=== PATIENT | male | born 1980 | race African-American/Black ===

== ENCOUNTER 2017-05-08 17:01 | Inpatient (IN) ==
[2017-05-08] MEDS ORDERED: FUROSEMIDE 100 MG/10 ML VIAL IV STA (17:53)
[2017-05-08] MEDS ORDERED: ONDANSETRON 4 MG/2 ML VIAL IV STA (17:53)
[2017-05-08] MEDS ORDERED: MORPHINE 2 MG/1 ML SYRINGE IV STA (17:53)
[2017-05-08] MEDS ORDERED: NITROGLYCERIN 2% OINT 1 INCH/GM PACK TOP STA (17:53)
[2017-05-08] MEDS ORDERED: ASPIRIN 325 MG TABLET PO STA (17:53)
[2017-05-08] MEDS ORDERED: methylPREDNISolone SOD SUC 125 MG/2 ML VIAL IV STA (17:53)
[2017-05-08] MEDS ORDERED: ALBUTEROL 2.5 MG/3 ML NEB RESP TX SCH (18:00)
[2017-05-08] MEDS ORDERED: DEXTROSE 50% 25 GM/50 ML VIAL IV PRN (18:30)
[2017-05-08] MEDS ORDERED: ACETAMINOPHEN 325 MG TABLET PO PRN (18:30)
[2017-05-08] MEDS ORDERED: GLUCAGON 1 MG VIAL IM PRN (18:30)
[2017-05-08] MEDS ORDERED: LACTULOSE 20 GM/30 ML UDCUP PO PRN (18:30)
[2017-05-08] MEDS ORDERED: ONDANSETRON 4 MG/2 ML VIAL IV PRN (18:30)
[2017-05-08] MEDS ORDERED: POTASSIUM CHLORIDE 20 MEQ TABLET PO STA (18:52)
[2017-05-08 18:53] LABS: Basophils % 0.3 % (0.0-0.8); Hematocrit 38.5 VOL% (42.0-52.0); Hemoglobin 13.5 GM/DL (14.0-18.0); Immature Granulocytes % 0.6 %; Immature Granulocytes Absolute 0.04 #; Lymphocytes # 0.3 10*3/uL (1.4-4.0); Lymphocytes % 5.3 % (21.2-54.2); Mean Corpuscular HGB Conc 35.1 GM/DL (32-36); Mean Corpuscular Hemoglobin 32 PG (27-34); Mean Corpuscular Volume 91.4 FL (87-102); Mean Platelet Volume 10.1 FL (9.6-12.0); Monocytes # 0.2 10*3/uL (0.11-0.8); Monocytes % 2.3 % (1.7-12.7); NRBC # 0.02 10*3/uL; Neutrophils # 5.9 10*3/uL (1.4-7.4); Neutrophils % 91.5 % (38.7-73.9); Platelet Count 307 T/CUMM (130-400); Red Blood Count 4.21 MC/CUMM (3.8-5.5); Red Cell Distribution Width 14.7 % (9.3-17.3); White Blood Count 6.4 T/CUMM (4-12)
[2017-05-08] MEDS ORDERED: LORazepam 1 MG TABLET PO PRN (18:56)
[2017-05-08 19:03] LABS: ABG Base Excess 2.6 MMOL/L (-2.5-2.5); ABG HCO3 26.7 MMOL/L (20-26); ABG Oxygen Saturation 96.6 % (95-100); ABG PCO2 29.9 MM HG (35-48); ABG PH 7.522 (7.35-7.45); ABG PO2 79.7 MM HG (80-95); ABG TCO2 21.1 MMOL/L (23-27)
[2017-05-08 19:05] LABS: INR 1.1; PT Patient Result 11.2 SECS
[2017-05-08 19:23] LABS: Albumin 3.5 G/DL (3.4-5.0); Calcium 8.2 MG/DL (8.5-10.1); Magnesium 1.1 MG/DL (1.8-2.4); Osmolality,Calculated 289.1 MOS/KG (273-304); Potassium 3.3 MMOL/L (3.5-5.1); Total Protein 7.7 G/DL (6.4-8.3)
[2017-05-08 19:25] LABS: Apearance,Urine CLEAR (Clear); Bilirubin,Urine Negative (Negative); Blood, Urine Negative (Negative); Glucose,Urine (UA) 50 mg/dL (Negative); Hyaline Casts,Urine 7 /LPF (0-3); Ketones,Urine 5 mg/dL (Negative); Mucus,Urine Few /LPF (Occasional); Nitrite,Urine Negative (Negative); Protein,Urine 100 MG/DL; Troponin I Only 0.059 NG/ML (0.00-0.045); Urine Color Yellow (Yellow); Urine Specific Gravity 1.013 (1.001-1.035); Urine Urobilinogen < 2.0 EU/DL (0.2-1.0); WBC,Urine 1 /HPF (0-6)
[2017-05-08] MEDS ORDERED: CARVEDILOL 3.125 MG TABLET ONE (19:27)
[2017-05-08] MEDS ORDERED: POTASSIUM CHLORIDE 20 MEQ TABLET PO ONE (19:27)
[2017-05-08] MEDS ORDERED: ONDANSETRON 4 MG/2 ML VIAL ONE (19:27)
[2017-05-08] MEDS ORDERED: MORPHINE 2 MG/1 ML SYRINGE ONE (19:27)
[2017-05-08] MEDS ORDERED: FUROSEMIDE 100 MG/10 ML VIAL ONE (19:28)
[2017-05-08] MEDS ORDERED: ASPIRIN 325 MG TABLET ONE (19:28)
[2017-05-08] MEDS ORDERED: MAGNESIUM SULF RIDER 4 GM in PREMIX 1 EACH IV ONE (19:29)
[2017-05-08 19:30] LABS: Barbiturates Screen,Urine Negative (Negative); Benzodiazepines Screen,Urine Negative (Negative); Cannabinoid Screen,Urine Negative (Negative); Opiate Screen,Urine Negative (Negative); Phencyclidine Screen,Urine Negative (Negative)
[2017-05-08] MEDS: CARVEDILOL 12.5 MG TABLET PO SCH (19:50)
[2017-05-08 20:07] LABS: Lymphocytes 4 % (20-55); Polychromasia Few; Segmented Neutrophils 94 % (50-85); Total Cells Counted 100
[2017-05-08 20:08] LABS: Hypochromasia Slight; Platelet Estimate Normal
[2017-05-08] MEDS ORDERED: LOSARTAN 50 MG TABLET PO SCH (21:00)
[2017-05-08] MEDS ORDERED: AMOXICILLIN 875 MG TABLET PO SCH (21:00)
[2017-05-08] MEDS ORDERED: MAGNESIUM SULF RIDER 50 ML IV ONE ×2 (21:22→22:18)
[2017-05-08] MEDS: methylPREDNISolone SOD SUC 40 MG/1 ML VIAL IV SCH (21:29)
[2017-05-08] MEDS: DILTIAZEM 50 MG/10 ML VIAL IV PRN (21:30)
[2017-05-08] MEDS: PIPERACILLIN/TAZOBACTAM 3,375 MG in SODIUM CHLORIDE 0.9% 100 ML IV SCH (21:31)
[2017-05-08] MEDS: INSULIN LISPRO 100 UNIT/ML SUBCUT SCH (21:31)
[2017-05-08] MEDS: SODIUM CHLORIDE 0.45% 1,000 ML IV SCH (21:32)
[2017-05-08] MEDS: ZALEPLON 5 MG CAPSULE PO PRN (22:38)
[2017-05-08 22:39] LABS: Hepatitis A Ab IgM Quant 0.08 Index; Hepatitis A Ab IgM Result Negative (Negative); Hepatitis B Core IgM Quant 0.07 Index; Hepatitis B Core IgM Result Negative (Negative); Hepatitis B Surface Ag Result Negative (Negative); Hepatitis C Virus Ab Quant 0.17 Index; Hepatitis C Virus Ab Result Negative (Negative)
[2017-05-09] MEDS: LABETALOL 20 MG/4 ML SYRINGE IV PRN ×5 (00:54→07:22)
[2017-05-09] MEDS: methylPREDNISolone SOD SUC 40 MG/1 ML VIAL IV SCH ×3 (03:44→20:57)
[2017-05-09 04:57] LABS: Hematocrit 34.6 VOL% (42.0-52.0); Hemoglobin 12.7 GM/DL (14.0-18.0); Immature Granulocytes % 1.2 %; Immature Granulocytes Absolute 0.06 #; Lymphocytes # 0.4 10*3/uL (1.4-4.0); Lymphocytes % 8.4 % (21.2-54.2); Mean Corpuscular HGB Conc 36.7 GM/DL (32-36); Mean Corpuscular Hemoglobin 33 PG (27-34); Mean Corpuscular Volume 90.6 FL (87-102); Mean Platelet Volume 10.4 FL (9.6-12.0); Monocytes # 0.3 10*3/uL (0.11-0.8); Monocytes % 5.6 % (1.7-12.7); NRBC # 0.02 10*3/uL; Neutrophils # 4.2 10*3/uL (1.4-7.4); Neutrophils % 84.8 % (38.7-73.9); Platelet Count 297 T/CUMM (130-400); Red Blood Count 3.82 MC/CUMM (3.8-5.5); Red Cell Distribution Width 14.6 % (9.3-17.3)
[2017-05-09] MEDS: PIPERACILLIN/TAZOBACTAM 3,375 MG in SODIUM CHLORIDE 0.9% 100 ML IV SCH (05:15)
[2017-05-09] MEDS: DILTIAZEM 50 MG/10 ML VIAL IV PRN (05:16)
[2017-05-09 05:31] LABS: Calcium 7.7 MG/DL (8.5-10.1); Osmolality,Calculated 285.4 MOS/KG (273-304); Potassium 3.5 MMOL/L (3.5-5.1); Risk Ratio 2.11; VLDL CHOLESTEROL 24.8 MG/DL
[2017-05-09] MEDS: SODIUM CHLORIDE 0.45% 1,000 ML IV SCH (06:33)
[2017-05-09] MEDS: ASPIRIN EC 325 MG TABLET PO SCH (08:05)
[2017-05-09] MEDS: PANTOPRAZOLE 40 MG TABLET PO SCH (08:06)
[2017-05-09] MEDS: THIAMINE 100 MG TABLET PO SCH (08:06)
[2017-05-09] MEDS: CARVEDILOL 12.5 MG TABLET PO SCH (08:06)
[2017-05-09] MEDS: INSULIN LISPRO 100 UNIT/ML SUBCUT SCH ×4 (08:06→21:06)
[2017-05-09] MEDS: FOLIC ACID 1 MG TABLET PO SCH (08:06)
[2017-05-09] MEDS: LEVALBUTEROL 1.25 MG/3 ML NEB RESP TX SCH ×5 (08:36→23:35)
[2017-05-09] MEDS: CARVEDILOL 25 MG TABLET PO SCH ×2 (10:14→21:00)
[2017-05-09] MEDS: cloNIDine 0.1 MG TABLET PO SCH ×2 (10:14→21:00)
[2017-05-09] MEDS ORDERED: POTASSIUM CHLORIDE 20 MEQ TABLET PO ONE (11:57)
[2017-05-09] MEDS: FUROSEMIDE 20 MG/2 ML VIAL IV SCH (12:34)
[2017-05-09] MEDS: hydroCHLOROthiazide 25 MG TABLET PO SCH (12:35)
[2017-05-09] MEDS: VALSARTAN 160 MG TABLET PO SCH (12:35)
[2017-05-09] MEDS: SPIRONOLACTONE 25 MG TABLET PO SCH (12:35)
[2017-05-09] MEDS: LEVOFLOXACIN 750 MG TABLET PO SCH (12:35)
[2017-05-09] MEDS: ENOXAPARIN 40 MG/0.4 ML SYRINGE SUBCUT SCH (18:20)
[2017-05-09] MEDS: ZALEPLON 5 MG CAPSULE PO PRN (21:06)
[2017-05-10] MEDS: LEVALBUTEROL 1.25 MG/3 ML NEB RESP TX SCH (03:10)
[2017-05-10] MEDS: LABETALOL 20 MG/4 ML SYRINGE IV PRN (05:24)
[2017-05-10] MEDS: methylPREDNISolone SOD SUC 40 MG/1 ML VIAL IV SCH ×3 (05:27→23:19)
[2017-05-10 06:42] LABS: Basophils % 0.1 % (0.0-0.8); Hematocrit 37.2 VOL% (42.0-52.0); Hemoglobin 12.8 GM/DL (14.0-18.0); Immature Granulocytes % 0.9 %; Immature Granulocytes Absolute 0.09 #; Lymphocytes # 0.7 10*3/uL (1.4-4.0); Lymphocytes % 6.7 % (21.2-54.2); Mean Corpuscular HGB Conc 34.4 GM/DL (32-36); Mean Corpuscular Hemoglobin 32 PG (27-34); Mean Corpuscular Volume 93.9 FL (87-102); Mean Platelet Volume 10.8 FL (9.6-12.0); Monocytes # 0.7 10*3/uL (0.11-0.8); Neutrophils # 8.5 10*3/uL (1.4-7.4); Neutrophils % 85.3 % (38.7-73.9); Platelet Count 306 T/CUMM (130-400); Red Blood Count 3.96 MC/CUMM (3.8-5.5); Red Cell Distribution Width 14.3 % (9.3-17.3)
[2017-05-10 07:04] LABS: Calcium 8.2 MG/DL (8.5-10.1); Osmolality,Calculated 275.4 MOS/KG (273-304); Potassium 3.9 MMOL/L (3.5-5.1)
[2017-05-10] MEDS: ALBUTEROL 2.5 MG/3 ML NEB RESP TX SCH ×5 (08:31→23:23)
[2017-05-10] MEDS: INSULIN LISPRO 100 UNIT/ML SUBCUT SCH ×4 (08:49→23:44)
[2017-05-10] MEDS: FUROSEMIDE 20 MG/2 ML VIAL IV SCH (09:30)
[2017-05-10] MEDS: hydroCHLOROthiazide 25 MG TABLET PO SCH (09:32)
[2017-05-10] MEDS: cloNIDine 0.1 MG TABLET PO SCH ×2 (09:32→23:22)
[2017-05-10] MEDS: SPIRONOLACTONE 25 MG TABLET PO SCH (09:33)
[2017-05-10] MEDS: LEVOFLOXACIN 750 MG TABLET PO SCH (09:33)
[2017-05-10] MEDS: THIAMINE 100 MG TABLET PO SCH (09:33)
[2017-05-10] MEDS: VALSARTAN 160 MG TABLET PO SCH (09:34)
[2017-05-10] MEDS: FOLIC ACID 1 MG TABLET PO SCH (09:34)
[2017-05-10] MEDS: PANTOPRAZOLE 40 MG TABLET PO SCH (09:34)
[2017-05-10] MEDS: CARVEDILOL 25 MG TABLET PO SCH ×2 (09:34→23:22)
[2017-05-10] MEDS: ASPIRIN EC 325 MG TABLET PO SCH (09:34)
[2017-05-10] MEDS ORDERED: hydrALAZINE 20 MG/1 ML VIAL IV PRN (16:39)
[2017-05-10] MEDS ORDERED: MAGNESIUM SULF RIDER 2 GM in PREMIX 1 EACH IV PRN (16:51)
[2017-05-10] MEDS ORDERED: POTASSIUM CHLORIDE RIDER 10 MEQ in PREMIX 1 EACH IV PRN (16:54)
[2017-05-10] MEDS: SODIUM CHLORIDE 0.9% 1,000 ML IV SCH (17:55)
[2017-05-10] MEDS: amLODIPine 5 MG TABLET PO SCH (18:08)
[2017-05-10] MEDS: ENOXAPARIN 40 MG/0.4 ML SYRINGE SUBCUT SCH (23:19)
[2017-05-10] MEDS: ZALEPLON 5 MG CAPSULE PO PRN (23:22)
[2017-05-11] MEDS: ALBUTEROL 2.5 MG/3 ML NEB RESP TX SCH ×5 (02:23→19:14)
[2017-05-11] MEDS: SODIUM CHLORIDE 0.9% 1,000 ML IV SCH ×2 (03:28→11:32)
[2017-05-11] MEDS: methylPREDNISolone SOD SUC 40 MG/1 ML VIAL IV SCH (05:42)
[2017-05-11 06:08] LABS: Hematocrit 35.5 VOL% (42.0-52.0); Hemoglobin 12.3 GM/DL (14.0-18.0); Immature Granulocytes % 0.8 %; Immature Granulocytes Absolute 0.05 #; Lymphocytes # 0.4 10*3/uL (1.4-4.0); Lymphocytes % 6.6 % (21.2-54.2); Mean Corpuscular HGB Conc 34.6 GM/DL (32-36); Mean Corpuscular Hemoglobin 32 PG (27-34); Mean Corpuscular Volume 92.2 FL (87-102); Mean Platelet Volume 10.8 FL (9.6-12.0); Monocytes # 0.5 10*3/uL (0.11-0.8); Monocytes % 7.4 % (1.7-12.7); Neutrophils # 5.7 10*3/uL (1.4-7.4); Neutrophils % 85.2 % (38.7-73.9); Platelet Count 252 T/CUMM (130-400); Red Blood Count 3.85 MC/CUMM (3.8-5.5); Red Cell Distribution Width 14.5 % (9.3-17.3); White Blood Count 6.6 T/CUMM (4-12)
[2017-05-11] MEDS ORDERED: diphenhydrAMINE CAP 25 MG CAPSULE PO ONE (06:30)
[2017-05-11] MEDS ORDERED: DIAZEPAM 5 MG TABLET PO ONE (06:30)
[2017-05-11 06:45] LABS: Calcium 8.4 MG/DL (8.5-10.1); Osmolality,Calculated 284.5 MOS/KG (273-304)
[2017-05-11] MEDS: INSULIN LISPRO 100 UNIT/ML SUBCUT SCH ×3 (08:58→19:07)
[2017-05-11] MEDS: VALSARTAN 160 MG TABLET PO SCH (09:10)
[2017-05-11] MEDS: hydroCHLOROthiazide 25 MG TABLET PO SCH (09:10)
[2017-05-11] MEDS: ASPIRIN EC 325 MG TABLET PO SCH (09:10)
[2017-05-11] MEDS: LEVOFLOXACIN 750 MG TABLET PO SCH (09:10)
[2017-05-11] MEDS: cloNIDine 0.1 MG TABLET PO SCH (09:10)
[2017-05-11] MEDS: amLODIPine 5 MG TABLET PO SCH (09:10)
[2017-05-11] MEDS: CARVEDILOL 25 MG TABLET PO SCH (09:10)
[2017-05-11] MEDS: SPIRONOLACTONE 25 MG TABLET PO SCH (09:11)
[2017-05-11] MEDS: PANTOPRAZOLE 40 MG TABLET PO SCH (09:11)
[2017-05-11] MEDS: FOLIC ACID 1 MG TABLET PO SCH (09:12)
[2017-05-11] MEDS: THIAMINE 100 MG TABLET PO SCH (09:12)
[2017-05-11] MEDS: FUROSEMIDE 20 MG/2 ML VIAL IV SCH (09:13)
[2017-05-11] MEDS ORDERED: LIDOCAINE 1% 20 ML VIAL ONE (13:06)
[2017-05-11] MEDS ORDERED: HEPARIN/NACL 0.9% 2 UNITS/ML 2,000 ML IV ONE (13:06)
[2017-05-11] MEDS ORDERED: VERAPAMIL 5 MG/2 ML VIAL ONE (14:37)
[2017-05-11] MEDS ORDERED: fentaNYL 100 MCG/2 ML VIAL ONE (14:37)
[2017-05-11] MEDS ORDERED: NITROGLYCERIN DRIP 50 MG/250 ML BOTTLE IV ONE (14:37)
[2017-05-11] MEDS ORDERED: MIDAZOLAM 2 MG/2 ML VIAL ONE ×2 (14:37→14:52)
[2017-05-11] MEDS ORDERED: HEPARIN 5,000 UNIT/1 ML VIAL ONE (14:53)
[2017-05-11] MEDS ORDERED: MORPHINE 2 MG/1 ML SYRINGE IV PRN (15:39)
[2017-05-11] MEDS ORDERED: NITROGLYCERIN SL 0.4 MG TABLET SL PRN (15:39)
[2017-05-11 21:03] VITALS: BP 107/65
[2017-05-12] MEDS ORDERED: predniSONE 20 MG TABLET PO SCH (09:00)
== END 2017-05-11 20:05 | disposition home or self-care (01) | DRG 202 ==
LOC: EDUNIT# → EDBD → N.ED 17:01 → N.EDINP 18:27 → N.ICU 19:06 → N.2E 05-09 15:50
PROVIDERS: ADMIT Family Medicine; ATTEND Family Medicine
PROC: CLCCHCL (ICD-10-PCS; 2017-05-11 12:15)

== ENCOUNTER 2017-07-26 09:34 | Inpatient (IN) ==
[2017-07-26] MEDS ORDERED: ONDANSETRON 4 MG/2 ML VIAL IV STA (10:01)
[2017-07-26] MEDS ORDERED: SODIUM CHLORIDE 0.9% 1,000 ML IV STA ×2 (10:01→10:17)
[2017-07-26] MEDS ORDERED: fentaNYL 100 MCG/2 ML VIAL IV STA (10:01)
[2017-07-26] MEDS ORDERED: POTASSIUM CHLORIDE 20 MEQ TABLET PO STA (10:17)
[2017-07-26] MEDS ORDERED: ONDANSETRON 4 MG/2 ML VIAL ONE (10:28)
[2017-07-26] MEDS ORDERED: POTASSIUM CHLORIDE 20 MEQ TABLET PO ONE (10:28)
[2017-07-26] MEDS ORDERED: fentaNYL 100 MCG/2 ML VIAL ONE (10:29)
[2017-07-26] MEDS ORDERED: ONDANSETRON 4 MG/2 ML VIAL IV PRN (11:40)
[2017-07-26] MEDS ORDERED: HYDROmorphone 2 MG/1 ML VIAL IV PRN (11:40)
[2017-07-26] MEDS ORDERED: PROMETHAZINE 25 MG/1 ML VIAL IM PRN (11:40)
[2017-07-26] MEDS ORDERED: diphenhydrAMINE CAP 25 MG CAPSULE PO PRN (11:40)
[2017-07-26] MEDS ORDERED: guaiFENesin/DM ER 600-30 MG TABLET PO PRN (11:40)
[2017-07-26] MEDS ORDERED: DOCUSATE SODIUM 100 MG CAPSULE PO PRN (11:40)
[2017-07-26] MEDS ORDERED: ACETAMINOPHEN 325 MG TABLET PO PRN (11:40)
[2017-07-26] MEDS ORDERED: GLUCAGON 1 MG VIAL IM PRN (11:48)
[2017-07-26] MEDS ORDERED: DEXTROSE 50% 25 GM/50 ML VIAL IV PRN (11:48)
[2017-07-26] MEDS ORDERED: SODIUM CHLORIDE 0.9% 1,000 ML IV SCH (12:00)
[2017-07-26 12:38] LABS: Basophils % 0.2 % (0.0-0.8); Eosinophils % 0.1 % (0.00-10.9); Hematocrit 32.3 VOL% (42.0-52.0); Immature Granulocytes % 4.7 %; Immature Granulocytes Absolute 0.57 #; Lymphocytes # 0.7 10*3/uL (1.4-4.0); Lymphocytes % 5.3 % (21.2-54.2); Mean Corpuscular Hemoglobin 35 PG (27-34); Mean Corpuscular Volume 98.8 FL (87-102); Mean Platelet Volume 13.6 FL (9.6-12.0); Monocytes # 0.6 10*3/uL (0.11-0.8); Monocytes % 4.9 % (1.7-12.7); NRBC # 0.08 10*3/uL; Neutrophils # 10.3 10*3/uL (1.4-7.4); Neutrophils % 84.8 % (38.7-73.9); Platelet Count 273 T/CUMM (130-400); Red Blood Count 3.27 MC/CUMM (3.8-5.5); Red Cell Distribution Width 15.7 % (9.3-17.3); White Blood Count 12.2 T/CUMM (4-12)
[2017-07-26 12:39] LABS: Hemoglobin 11.3 GM/DL (14.0-18.0)
[2017-07-26 12:59] LABS: Risk Ratio 27.36; VLDL CHOLESTEROL 604.6 MG/DL
[2017-07-26 13:25] LABS: Hypochromasia 1+
[2017-07-26 13:46] LABS: Albumin 2.1 G/DL (3.4-5.0); Bilirubin,Total 5.3 MG/DL (0.2-1.0); Osmolality,Calculated 263.2 MOS/KG (273-304)
[2017-07-26] MEDS ORDERED: SODIUM CHLOR 0.9% KCL 40 MEQ 40 MEQ/1,000 ML BAG IV SCH (14:00)
[2017-07-26 14:05] LABS: Calcium 6.7 MG/DL (8.5-10.1); Total Protein 6.6 G/DL (6.4-8.3)
[2017-07-26] MEDS: KCL IV SCH ×2 (14:24→20:49)
[2017-07-26] MEDS: SODIUM CHLOR 0.9% IV SCH ×2 (14:24→20:49)
[2017-07-26] MEDS: SODIUM IV SCH ×2 (14:24→20:49)
[2017-07-26] MEDS: MULTIVITAMIN IV SCH ×2 (14:24→20:49)
[2017-07-26] MEDS ORDERED: MORPHINE 10 MG/1 ML VIAL IV PRN (14:30)
[2017-07-26] MEDS ORDERED: MULTIVITAMIN INJ 10 ML in SODIUM CHLORIDE 0.45% 1,000 ML IV SCH (14:30)
[2017-07-26] MEDS: ATORVASTATIN 40 MG TABLET PO SCH (15:10)
[2017-07-26] MEDS: FENOFIBRATE 160 MG TABLET PO SCH (15:10)
[2017-07-26] MEDS: FOLIC ACID 1 MG TABLET PO SCH (15:10)
[2017-07-26] MEDS: THIAMINE 200 MG/2 ML VIAL IV SCH (15:10)
[2017-07-26] MEDS: methylPREDNISolone SOD SUC 40 MG/1 ML VIAL IV SCH (15:10)
[2017-07-26] MEDS: OMEGA 3 ACID ETHYL ESTERS 1 GM CAPSULE PO SCH ×2 (15:10→20:48)
[2017-07-26] MEDS: PANTOPRAZOLE 40 MG TABLET PO SCH (15:10)
[2017-07-26] MEDS: ALBUTEROL/IPRATROPIUM 3 ML NEB RESP TX SCH ×2 (15:24→20:23)
[2017-07-26] MEDS: INSULIN LISPRO 100 UNIT/ML SUBCUT SCH (17:00)
[2017-07-26 18:45] LABS: Apearance,Urine Slightly Hazy (Clear); Bilirubin,Urine Negative (Negative); Blood, Urine Small mg/dL (Negative); Glucose,Urine (UA) >=500 mg/dL (Negative); Ketones,Urine 20 mg/dL (Negative); Mucus,Urine Occasional /LPF (Occasional); Nitrite,Urine Negative (Negative); Protein,Urine 30 MG/DL; RBC,Urine <1 /HPF (0-4); Squamous Epithelial Cell,Urine Occasional /HPF (0-10); Urine Color Amber (Yellow); Urine Specific Gravity 1.013 (1.001-1.035); WBC,Urine 3 /HPF (0-6)
[2017-07-26] MEDS: CARVEDILOL 25 MG TABLET PO SCH (20:49)
[2017-07-26] MEDS: ENOXAPARIN 40 MG/0.4 ML SYRINGE SUBCUT SCH (20:49)
[2017-07-26] MEDS ORDERED: hydrALAZINE 20 MG/1 ML VIAL IV PRN (23:10)
[2017-07-27] MEDS: ALBUTEROL/IPRATROPIUM 3 ML NEB RESP TX SCH ×4 (01:50→19:25)
[2017-07-27] MEDS: SODIUM IV SCH (04:59)
[2017-07-27] MEDS: MULTIVITAMIN IV SCH (04:59)
[2017-07-27] MEDS: KCL IV SCH (04:59)
[2017-07-27] MEDS: SODIUM CHLOR 0.9% IV SCH (04:59)
[2017-07-27 06:47] LABS: Basophils % 0.3 % (0.0-0.8); Hematocrit 30.5 VOL% (42.0-52.0); Hemoglobin 10.1 GM/DL (14.0-18.0); Immature Granulocytes % 1.3 %; Immature Granulocytes Absolute 0.12 #; Lymphocytes # 0.5 10*3/uL (1.4-4.0); Lymphocytes % 5.4 % (21.2-54.2); Mean Corpuscular HGB Conc 33.1 GM/DL (32-36); Mean Corpuscular Hemoglobin 35 PG (27-34); Mean Corpuscular Volume 104.1 FL (87-102); Mean Platelet Volume 11.4 FL (9.6-12.0); Monocytes # 0.5 10*3/uL (0.11-0.8); Monocytes % 5.6 % (1.7-12.7); Neutrophils # 8.2 10*3/uL (1.4-7.4); Neutrophils % 87.4 % (38.7-73.9); Platelet Count 137 T/CUMM (130-400); Red Blood Count 2.93 MC/CUMM (3.8-5.5); Red Cell Distribution Width 15.6 % (9.3-17.3); White Blood Count 9.4 T/CUMM (4-12)
[2017-07-27 07:20] LABS: Albumin 2.4 G/DL (3.4-5.0); Bilirubin,Total 4.3 MG/DL (0.2-1.0); Osmolality,Calculated 271.2 MOS/KG (273-304); Potassium 3.2 MMOL/L (3.5-5.1); Thyroid Stimulating Hormone 3.34 uIU/ml (0.358-3.74); Total Protein 5.8 G/DL (6.4-8.3)
[2017-07-27 07:27] LABS: Calcium 5.7 MG/DL (8.5-10.1)
[2017-07-27] MEDS ORDERED: LORazepam 2 MG/1 ML VIAL IV PRN (07:33)
[2017-07-27 07:34] LABS: Band Neutrophils 14 % (0-10); Hypochromasia 1+; Lymphocytes 5 % (20-55); Macrocytosis 1+; Segmented Neutrophils 73 % (50-85); Total Cells Counted 100
[2017-07-27 07:35] LABS: Platelet Estimate Adequate; Target Cells Slight
[2017-07-27 07:59] LABS: Hepatitis A Ab IgM Quant 0.04 Index; Hepatitis A Ab IgM Result Negative (Negative); Hepatitis B Core IgM Quant 0.18 Index; Hepatitis B Core IgM Result Negative (Negative); Hepatitis B Surface Ag Quant 0.28 Index; Hepatitis B Surface Ag Result Negative (Negative); Hepatitis C Virus Ab Quant 0.25 Index; Hepatitis C Virus Ab Result Negative (Negative)
[2017-07-27] MEDS ORDERED: MAGNESIUM SULF RIDER 4 GM in PREMIX 1 EACH IV PRN (08:50)
[2017-07-27] MEDS ORDERED: MAGNESIUM SULF RIDER 2 GM in PREMIX 1 EACH IV PRN (08:50)
[2017-07-27] MEDS ORDERED: CALCIUM GLUCONATE 2,000 MG in SODIUM CHLORIDE 0.9% 100 ML IV ONE (09:00)
[2017-07-27] MEDS: THIAMINE 200 MG/2 ML VIAL IV SCH (09:00)
[2017-07-27] MEDS: methylPREDNISolone SOD SUC 40 MG/1 ML VIAL IV SCH (09:01)
[2017-07-27] MEDS: CARVEDILOL 25 MG TABLET PO SCH ×2 (09:03→21:14)
[2017-07-27] MEDS: OMEGA 3 ACID ETHYL ESTERS 1 GM CAPSULE PO SCH ×2 (09:03→21:13)
[2017-07-27] MEDS: FOLIC ACID 1 MG TABLET PO SCH (09:03)
[2017-07-27] MEDS: INSULIN LISPRO 100 UNIT/ML SUBCUT SCH ×3 (09:03→17:28)
[2017-07-27] MEDS: FENOFIBRATE 160 MG TABLET PO SCH (09:03)
[2017-07-27] MEDS: PANTOPRAZOLE 40 MG TABLET PO SCH (09:03)
[2017-07-27] MEDS: amLODIPine 5 MG TABLET PO SCH (09:03)
[2017-07-27] MEDS: ATORVASTATIN 40 MG TABLET PO SCH (09:03)
[2017-07-27] MEDS: CALCIUM (CITRATE) 200 MG TABLET PO SCH ×2 (09:03→21:13)
[2017-07-27] MEDS: chlordiazePOXIDE 25 MG CAPSULE PO SCH ×2 (13:13→17:28)
[2017-07-27] MEDS: POTASSIUM CHLORIDE RIDER 10 MEQ in PREMIX 1 EACH IV PRN ×3 (18:11→23:00)
[2017-07-27] MEDS: ENOXAPARIN 40 MG/0.4 ML SYRINGE SUBCUT SCH (21:13)
[2017-07-27] MEDS ORDERED: DEXTROSE 50% 25 GM/50 ML VIAL IV PRN (21:30)
[2017-07-27] MEDS ORDERED: GLUCAGON 1 MG VIAL IM PRN (21:30)
[2017-07-28] MEDS: POTASSIUM CHLORIDE RIDER 10 MEQ in PREMIX 1 EACH IV PRN (00:10)
[2017-07-28] MEDS: chlordiazePOXIDE 25 MG CAPSULE PO SCH ×3 (01:11→13:34)
[2017-07-28] MEDS: ALBUTEROL/IPRATROPIUM 3 ML NEB RESP TX SCH ×2 (01:34→07:04)
[2017-07-28] MEDS ORDERED: SODIUM CHLOR 0.9% KCL 40 MEQ 40 MEQ/1,000 ML BAG IV SCH (03:00)
[2017-07-28] MEDS: KCL IV SCH ×2 (03:20→12:53)
[2017-07-28] MEDS: SODIUM CHLOR 0.9% IV SCH ×2 (03:20→12:53)
[2017-07-28] MEDS: SODIUM IV SCH ×2 (03:20→12:53)
[2017-07-28] MEDS: MULTIVITAMIN IV SCH ×2 (03:20→12:53)
[2017-07-28 07:04] LABS: Calcium 6.2 MG/DL (8.5-10.1); Osmolality,Calculated 270.4 MOS/KG (273-304); Potassium 3.5 MMOL/L (3.5-5.1)
[2017-07-28 07:09] LABS: Albumin 2.1 G/DL (3.4-5.0); Bilirubin,Direct 3.17 MG/DL (0.0-0.20); Bilirubin,Indirect 0.6 MG/DL (0.0-1.0); Bilirubin,Total 3.8 MG/DL (0.2-1.0); Total Protein 5.5 G/DL (6.4-8.3)
[2017-07-28 07:56] LABS: Basophils % 0.1 % (0.0-0.8); Eosinophils % 0.1 % (0.00-10.9); Hematocrit 27.3 VOL% (42.0-52.0); Hemoglobin 9.3 GM/DL (14.0-18.0); Immature Granulocytes % 1.1 %; Immature Granulocytes Absolute 0.08 #; Lymphocytes # 0.8 10*3/uL (1.4-4.0); Lymphocytes % 10.8 % (21.2-54.2); Mean Corpuscular HGB Conc 34.1 GM/DL (32-36); Mean Corpuscular Hemoglobin 34 PG (27-34); Mean Corpuscular Volume 100.7 FL (87-102); Mean Platelet Volume 11.6 FL (9.6-12.0); Monocytes # 0.6 10*3/uL (0.11-0.8); Monocytes % 7.9 % (1.7-12.7); NRBC # 0.03 10*3/uL; Neutrophils # 5.7 10*3/uL (1.4-7.4); Platelet Count 149 T/CUMM (130-400); Red Blood Count 2.71 MC/CUMM (3.8-5.5); Red Cell Distribution Width 15.4 % (9.3-17.3); White Blood Count 7.1 T/CUMM (4-12)
[2017-07-28] MEDS ORDERED: CALCIUM GLUCONATE 2,000 MG in SODIUM CHLORIDE 0.9% 100 ML IV ONE (08:07)
[2017-07-28 08:18] LABS: Giant Platelets Few; Hypochromasia 1+; Platelet Estimate Normal
[2017-07-28 08:19] LABS: Macrocytosis Slight
[2017-07-28 08:24] LABS: Albumin 2.2 G/DL (3.4-5.0); Bilirubin,Total 3.8 MG/DL (0.2-1.0); Osmolality,Calculated 269.4 MOS/KG (273-304); Potassium 3.5 MMOL/L (3.5-5.1); Total Protein 5.6 G/DL (6.4-8.3)
[2017-07-28] MEDS: INSULIN REGULAR 100 UNIT/ML SUBCUT SCH ×2 (09:48→12:53)
[2017-07-28] MEDS: CALCIUM (CITRATE) 200 MG TABLET PO SCH (09:51)
[2017-07-28] MEDS: OMEGA 3 ACID ETHYL ESTERS 1 GM CAPSULE PO SCH (09:51)
[2017-07-28] MEDS: CARVEDILOL 25 MG TABLET PO SCH (09:51)
[2017-07-28] MEDS: PANTOPRAZOLE 40 MG TABLET PO SCH (09:51)
[2017-07-28] MEDS: FENOFIBRATE 160 MG TABLET PO SCH (09:51)
[2017-07-28] MEDS: FOLIC ACID 1 MG TABLET PO SCH (09:51)
[2017-07-28] MEDS: ATORVASTATIN 40 MG TABLET PO SCH (09:51)
[2017-07-28] MEDS: amLODIPine 5 MG TABLET PO SCH (09:51)
[2017-07-28] MEDS: THIAMINE 200 MG/2 ML VIAL IV SCH (09:52)
[2017-07-28 11:48] VITALS: BP 152/87
[2017-07-28] MEDS ORDERED: metFORMIN 500 MG TABLET PO SCH (17:00)
== END 2017-07-28 14:20 | disposition home or self-care (01) | DRG 439 ==
LOC: EDUNIT# → EDBD → N.ED 09:34 → N.EDINP 11:40 → N.2E 13:48
PROVIDERS: ADMIT Internal Medicine; ATTEND Internal Medicine

== ENCOUNTER 2017-12-21 11:59 | Inpatient (IN) ==
[2017-12-21] MEDS ORDERED: SODIUM CHLORIDE 0.9% 1,000 ML IV STA ×3 (12:35→15:03)
[2017-12-21 13:22] LABS: Basophils % 0.4 % (0.0-0.8); Eosinophils % 0.3 % (0.00-10.9); Hematocrit 30.6 VOL% (42.0-52.0); Hemoglobin 11.1 GM/DL (14.0-18.0); Immature Granulocytes % 0.7 %; Immature Granulocytes Absolute 0.07 #; Lymphocytes # 0.7 10*3/uL (1.4-4.0); Lymphocytes % 6.4 % (21.2-54.2); Mean Corpuscular HGB Conc 36.3 GM/DL (32-36); Mean Corpuscular Hemoglobin 33 PG (27-34); Mean Corpuscular Volume 90.8 FL (87-102); Mean Platelet Volume 11.6 FL (9.6-12.0); Monocytes # 0.5 10*3/uL (0.11-0.8); Monocytes % 4.3 % (1.7-12.7); Neutrophils # 9.3 10*3/uL (1.4-7.4); Neutrophils % 87.9 % (38.7-73.9); Platelet Count 119 T/CUMM (130-400); Red Blood Count 3.37 MC/CUMM (3.8-5.5); Red Cell Distribution Width 14.5 % (9.3-17.3); White Blood Count 10.6 T/CUMM (4-12)
[2017-12-21 13:28] LABS: INR 1.1; PT Patient Result 11.1 SECS
[2017-12-21 13:46] LABS: Risk Ratio 19.93; VLDL CHOLESTEROL 502.2 MG/DL
[2017-12-21 13:48] LABS: Lactic Acid 1.6 MMOL/L (0.4-2.0)
[2017-12-21 13:50] LABS: Anisocytosis 1+; Band Neutrophils 33 % (0-10); Lymphocytes 12 % (20-55); Segmented Neutrophils 53 % (50-85); Stomatocytes 1+
[2017-12-21 13:51] LABS: Platelet Estimate Adequate; Spherocytes Few; Total Cells Counted 100
[2017-12-21 14:38] LABS: Partial Thromboplastin Time 22.1 SECS (0-40)
[2017-12-21 15:14] LABS: Albumin 2.3 G/DL (3.4-5.0); Bilirubin,Total 7.8 MG/DL (0.2-1.0); Osmolality,Calculated 268.2 MOS/KG (273-304); Potassium 2.9 MMOL/L (3.5-5.1); Total Protein 5.8 G/DL (6.4-8.3)
[2017-12-21 15:56] LABS: Apearance,Urine CLOUDY (Clear); Bacteria,Urine Occasional /HPF (Few); Blood, Urine Moderate mg/dL (Negative); Glucose,Urine (UA) 50 mg/dL (Negative); Hyaline Casts,Urine 109 /LPF (0-3); Ketones,Urine Negative (Negative); Mucus,Urine Moderate /LPF (Occasional); Nitrite,Urine Negative (Negative); Protein,Urine 100 MG/DL; RBC,Urine 2 /HPF (0-4); Squamous Epithelial Cell,Urine Occasional /HPF (0-10); Urine Color Amber (Yellow); Urine Specific Gravity 1.017 (1.001-1.035); WBC,Urine 62 /HPF (0-6)
[2017-12-21 15:58] LABS: Bilirubin,Urine Small mg/dL (Negative)
[2017-12-21] MEDS ORDERED: INSULIN REGULAR DRIP 100 ML IV PRN (17:12)
[2017-12-21 17:13] LABS: Calcium 5.2 MG/DL (8.5-10.1)
[2017-12-21] MEDS ORDERED: PHENYLEPHRINE DRIP 40 MG/250 ML PREMIX IV ONE (17:24)
[2017-12-21] MEDS: SODIUM CHLORIDE 0.9% 1,000 ML IV SCH (17:34)
[2017-12-21] MEDS: ONDANSETRON 4 MG/2 ML VIAL IV PRN ×2 (17:40→21:53)
[2017-12-21] MEDS: FENOFIBRATE 145 MG TABLET PO SCH (17:46)
[2017-12-21] MEDS: cefTRIAXone 1,000 MG in SYRINGE 1 EACH IV SCH (18:09)
[2017-12-21] MEDS: PANTOPRAZOLE 40 MG VIAL IV SCH (18:10)
[2017-12-21 19:47] LABS: INR 1.1; PT Patient Result 11.1 SECS
[2017-12-21 20:03] LABS: B-Type Natriuretic Peptide 8 PG/ML (2-100)
[2017-12-21 20:05] LABS: Risk Ratio 18.29; VLDL CHOLESTEROL 394.8 MG/DL
[2017-12-21 20:21] LABS: Lactic Acid 0.7 MMOL/L (0.4-2.0)
[2017-12-21 20:42] LABS: Hepatitis A Ab IgM Quant 0.27 Index; Hepatitis A Ab IgM Result Negative (Negative); Hepatitis B Core IgM Quant < 0.05 Index; Hepatitis B Core IgM Result Negative (Negative); Hepatitis B Surface Ag Quant < 0.10 Index; Hepatitis B Surface Ag Result Negative (Negative); Hepatitis C Virus Ab Quant 0.03 Index; Hepatitis C Virus Ab Result Negative (Negative)
[2017-12-21] MEDS: PHENYLEPHRINE DRIP 40 MG/250 ML PREMIX IV PRN (21:05)
[2017-12-21 21:37] LABS: Thyroid Stimulating Hormone 3.6 uIU/ml (0.358-3.74); Uric Acid 10.4 MG/DL (3.5-7.2)
[2017-12-21] MEDS: OMEGA 3 ACID ETHYL ESTERS 1 GM CAPSULE PO SCH (21:52)
[2017-12-21] MEDS: MORPHINE 4 MG/1 ML VIAL IV PRN (21:52)
[2017-12-21] MEDS: ENOXAPARIN 30 MG/0.3 ML SYRINGE SUBCUT SCH (21:52)
[2017-12-21] MEDS: ATORVASTATIN 80 MG TABLET PO SCH (21:52)
[2017-12-22] MEDS: SODIUM CHLORIDE 0.9% 1,000 ML IV SCH ×2 (03:40→17:31)
[2017-12-22] MEDS: ONDANSETRON 4 MG/2 ML VIAL IV PRN ×2 (03:40→22:38)
[2017-12-22] MEDS: MORPHINE 4 MG/1 ML VIAL IV PRN ×3 (03:40→22:38)
[2017-12-22 05:10] LABS: Basophils % 0.5 % (0.0-0.8); Eosinophils # 0.1 10*3/uL (0.0-0.87); Eosinophils % 0.8 % (0.00-10.9); Hematocrit 29.1 VOL% (42.0-52.0); Immature Granulocytes % 2.6 %; Immature Granulocytes Absolute 0.22 #; Lymphocytes # 0.8 10*3/uL (1.4-4.0); Mean Corpuscular HGB Conc 34.4 GM/DL (32-36); Mean Corpuscular Hemoglobin 31 PG (27-34); Mean Corpuscular Volume 90.4 FL (87-102); Mean Platelet Volume 11.5 FL (9.6-12.0); Monocytes # 0.6 10*3/uL (0.11-0.8); Monocytes % 6.6 % (1.7-12.7); Neutrophils # 6.9 10*3/uL (1.4-7.4); Neutrophils % 80.5 % (38.7-73.9); Platelet Count 108 T/CUMM (130-400); Red Blood Count 3.22 MC/CUMM (3.8-5.5); White Blood Count 8.5 T/CUMM (4-12)
[2017-12-22 05:43] LABS: Alanine Aminotransferase 103 U/L (16-61); Albumin 2.1 G/DL (3.4-5.0); Alkaline Phosphatase 121 U/L (45-117); Amylase 80 U/L (25-115); Aspartate Amino Transferase 174 U/L (0-37); Blood Urea Nitrogen 38 MG/DL (7-18); Cholesterol 255 MG/DL (50-200); Glucose 142 MG/DL (74-106); HDL Cholesterol 14 MG/DL (40-60); Osmolality,Calculated 274.5 MOS/KG (273-304); Potassium 2.8 MMOL/L (3.5-5.1); Risk Ratio 18.21; Sodium 132 MMOL/L (136-145); Total Protein 5.8 G/DL (6.4-8.3); Triglycerides 1582 MG/DL (2-150); VLDL CHOLESTEROL 316.4 MG/DL
[2017-12-22 05:44] LABS: Calcium < 5.0 MG/DL (8.5-10.1)
[2017-12-22 05:45] LABS: Anisocytosis Slight; Macrocytosis Slight; Platelet Estimate Decreased
[2017-12-22] MEDS ORDERED: MAGNESIUM SULF RIDER 4 GM in PREMIX 1 EACH IV PRN (05:51)
[2017-12-22] MEDS ORDERED: MAGNESIUM SULF RIDER 50 ML IV ONE (05:53)
[2017-12-22] MEDS: MAGNESIUM SULF RIDER 2 GM in PREMIX 1 EACH IV PRN ×2 (05:55→09:00)
[2017-12-22] MEDS ORDERED: CALCIUM GLUCONATE 2,000 MG in SODIUM CHLORIDE 0.9% 100 ML IV ONE ×2 (06:00→16:18)
[2017-12-22] MEDS ORDERED: POTASSIUM CHLORIDE INJ 50 MEQ in SODIUM CHLORIDE 0.9% 475 ML IV SCH (07:00)
[2017-12-22] MEDS ORDERED: MAGNESIUM SULF RIDER 4 GM in PREMIX 1 EACH IV ONE (08:53)
[2017-12-22] MEDS: OMEGA 3 ACID ETHYL ESTERS 1 GM CAPSULE PO SCH ×2 (09:01→22:39)
[2017-12-22] MEDS: FENOFIBRATE 145 MG TABLET PO SCH (09:01)
[2017-12-22] MEDS: PANTOPRAZOLE 40 MG VIAL IV SCH (09:01)
[2017-12-22 10:16] LABS: AFP Tumor 1.7 NG/ML (0-8); Carcinoembryonic Antigen 0.7 NG/ML (0.0-5.0)
[2017-12-22 16:03] LABS: Osmolality,Calculated 271.1 MOS/KG (273-304); Potassium 3.2 MMOL/L (3.5-5.1); Total Protein 5.8 G/DL (6.4-8.3)
[2017-12-22 16:05] LABS: Calcium 5.4 MG/DL (8.5-10.1)
[2017-12-22] MEDS: POTASSIUM CHLORIDE RIDER 10 MEQ in PREMIX 1 EACH IV PRN ×4 (16:38→22:22)
[2017-12-22] MEDS: cefTRIAXone 1,000 MG in SYRINGE 1 EACH IV SCH (18:16)
[2017-12-22] MEDS: PHENYLEPHRINE DRIP 40 MG/250 ML PREMIX IV PRN (20:44)
[2017-12-22] MEDS: ENOXAPARIN 30 MG/0.3 ML SYRINGE SUBCUT SCH (22:39)
[2017-12-22] MEDS: ATORVASTATIN 80 MG TABLET PO SCH (22:39)
[2017-12-23 02:28] LABS: Basophils % 0.5 % (0.0-0.8); Eosinophils # 0.1 10*3/uL (0.0-0.87); Eosinophils % 0.7 % (0.00-10.9); Hematocrit 27.2 VOL% (42.0-52.0); Hemoglobin 9.1 GM/DL (14.0-18.0); Immature Granulocytes % 2.4 %; Immature Granulocytes Absolute 0.18 #; Lymphocytes # 0.5 10*3/uL (1.4-4.0); Mean Corpuscular HGB Conc 33.5 GM/DL (32-36); Mean Corpuscular Hemoglobin 31 PG (27-34); Mean Corpuscular Volume 91.6 FL (87-102); Mean Platelet Volume 11.3 FL (9.6-12.0); Monocytes # 0.6 10*3/uL (0.11-0.8); Monocytes % 8.4 % (1.7-12.7); NRBC # 0.02 10*3/uL; Neutrophils # 6.1 10*3/uL (1.4-7.4); Platelet Count 125 T/CUMM (130-400); Red Blood Count 2.97 MC/CUMM (3.8-5.5); White Blood Count 7.5 T/CUMM (4-12)
[2017-12-23] MEDS: MORPHINE 4 MG/1 ML VIAL IV PRN ×3 (02:55→19:44)
[2017-12-23] MEDS: ONDANSETRON 4 MG/2 ML VIAL IV PRN ×2 (02:55→19:44)
[2017-12-23 03:01] LABS: Albumin 1.9 G/DL (3.4-5.0); Osmolality,Calculated 277.7 MOS/KG (273-304); Potassium 3.4 MMOL/L (3.5-5.1); Total Protein 6.1 G/DL (6.4-8.3)
[2017-12-23 03:07] LABS: Calcium 5.5 MG/DL (8.5-10.1)
[2017-12-23 03:45] LABS: Band Neutrophils 8 % (0-10); Eosinophils 1 % (0-10); Lymphocytes 6 % (20-55); Metamyelocytes 1 %; Platelet Estimate Normal; Segmented Neutrophils 81 % (50-85); Total Cells Counted 100
[2017-12-23] MEDS ORDERED: CALCIUM GLUCONATE 2,000 MG in SODIUM CHLORIDE 0.9% 100 ML IV ONE (03:45)
[2017-12-23 03:47] LABS: Polychromasia Slight
[2017-12-23] MEDS: POTASSIUM CHLORIDE RIDER 10 MEQ in PREMIX 1 EACH IV PRN ×2 (05:30→07:01)
[2017-12-23] MEDS: SODIUM CHLORIDE 0.9% 1,000 ML IV SCH ×2 (07:00→07:30)
[2017-12-23] MEDS: PHENYLEPHRINE DRIP 40 MG/250 ML PREMIX IV PRN ×2 (07:00→16:15)
[2017-12-23] MEDS ORDERED: DEXTROSE 50% 25 GM/50 ML VIAL IV PRN (08:33)
[2017-12-23] MEDS ORDERED: GLUCAGON 1 MG VIAL IM PRN (08:33)
[2017-12-23] MEDS: PANTOPRAZOLE 40 MG VIAL IV SCH (09:41)
[2017-12-23] MEDS: FENOFIBRATE 145 MG TABLET PO SCH (09:41)
[2017-12-23] MEDS: OMEGA 3 ACID ETHYL ESTERS 1 GM CAPSULE PO SCH ×2 (09:41→22:16)
[2017-12-23] MEDS: CALCIUM GLUCONATE 2,000 MG in SODIUM CHLORIDE 0.9% 100 ML IV SCH ×4 (10:48→22:15)
[2017-12-23] MEDS: INSULIN LISPRO 100 UNIT/ML SUBCUT SCH ×3 (12:04→22:16)
[2017-12-23] MEDS: LACTATED RINGERS 1,000 ML IV SCH ×2 (13:54→22:15)
[2017-12-23] MEDS: cefTRIAXone 1,000 MG in SYRINGE 1 EACH IV SCH (17:55)
[2017-12-23] MEDS: ATORVASTATIN 80 MG TABLET PO SCH (22:16)
[2017-12-23] MEDS: ENOXAPARIN 30 MG/0.3 ML SYRINGE SUBCUT SCH (22:16)
[2017-12-24] MEDS: MORPHINE 4 MG/1 ML VIAL IV PRN (04:39)
[2017-12-24] MEDS: ONDANSETRON 4 MG/2 ML VIAL IV PRN (04:40)
[2017-12-24 05:02] LABS: Basophils # 0.1 10*3/uL (0.0-0.2); Basophils % 0.7 % (0.0-0.8); Eosinophils # 0.1 10*3/uL (0.0-0.87); Eosinophils % 0.7 % (0.00-10.9); Hematocrit 26.2 VOL% (42.0-52.0); Hemoglobin 8.9 GM/DL (14.0-18.0); Immature Granulocytes % 6.6 %; Immature Granulocytes Absolute 0.45 #; Lymphocytes # 0.3 10*3/uL (1.4-4.0); Lymphocytes % 4.1 % (21.2-54.2); Mean Corpuscular Hemoglobin 31 PG (27-34); Mean Corpuscular Volume 89.7 FL (87-102); Mean Platelet Volume 11.3 FL (9.6-12.0); Monocytes # 0.6 10*3/uL (0.11-0.8); Monocytes % 8.3 % (1.7-12.7); NRBC # 0.05 10*3/uL; Neutrophils # 5.5 10*3/uL (1.4-7.4); Neutrophils % 79.6 % (38.7-73.9); Platelet Count 143 T/CUMM (130-400); Red Blood Count 2.92 MC/CUMM (3.8-5.5); Red Cell Distribution Width 15.3 % (9.3-17.3); White Blood Count 6.9 T/CUMM (4-12)
[2017-12-24 05:18] LABS: Calcium 6.9 MG/DL (8.5-10.1); Osmolality,Calculated 267.6 MOS/KG (273-304); Potassium 3.7 MMOL/L (3.5-5.1)
[2017-12-24 05:19] LABS: Albumin 1.8 G/DL (3.4-5.0); Bilirubin,Total 5.6 MG/DL (0.2-1.0); Calcium 6.9 MG/DL (8.5-10.1); Osmolality,Calculated 268.5 MOS/KG (273-304); Potassium 3.7 MMOL/L (3.5-5.1); Total Protein 6.3 G/DL (6.4-8.3)
[2017-12-24 05:22] LABS: Albumin 1.8 G/DL (3.4-5.0); Bilirubin,Direct 4.77 MG/DL (0.0-0.20); Bilirubin,Indirect 0.9 MG/DL (0.0-1.0); Bilirubin,Total 5.7 MG/DL (0.2-1.0); Total Protein 6.4 G/DL (6.4-8.3)
[2017-12-24 05:33] LABS: Band Neutrophils 13 % (0-10); Eosinophils 1 % (0-10); Hypochromasia 1+; Lymphocytes 5 % (20-55); Segmented Neutrophils 75 % (50-85); Total Cells Counted 100
[2017-12-24 05:34] LABS: Macrocytosis Slight; Target Cells Slight
[2017-12-24] MEDS: LACTATED RINGERS 1,000 ML IV SCH ×2 (06:30→20:12)
[2017-12-24] MEDS: INSULIN LISPRO 100 UNIT/ML SUBCUT SCH ×4 (08:34→22:00)
[2017-12-24] MEDS: PANTOPRAZOLE 40 MG VIAL IV SCH (08:43)
[2017-12-24] MEDS: FENOFIBRATE 145 MG TABLET PO SCH (08:43)
[2017-12-24] MEDS: OMEGA 3 ACID ETHYL ESTERS 1 GM CAPSULE PO SCH ×2 (08:43→22:12)
[2017-12-24] MEDS: ALBUMIN 25% 12.5 GM in PREMIX 1 EACH IV SCH ×2 (13:15→19:34)
[2017-12-24] MEDS ORDERED: FUROSEMIDE INJ 200 MG in SODIUM CHLORIDE 0.9% 50 ML IV ONE (15:20)
[2017-12-24] MEDS: DIAZEPAM 5 MG TABLET PO PRN (15:30)
[2017-12-24] MEDS: ALBUTEROL/IPRATROPIUM 3 ML NEB RESP TX PRN (15:30)
[2017-12-24] MEDS ORDERED: LEVOFLOXACIN INJ 500 MG in PREMIX 1 EACH IV ONE (17:00)
[2017-12-24 17:10] LABS: ABG Base Excess -11.7 MMOL/L (-2.5-2.5); ABG HCO3 15.1 MMOL/L (20-26); ABG Oxygen Saturation 99.3 % (95-100); ABG PCO2 53.3 MM HG (35-48); ABG TCO2 16.9 MMOL/L (23-27)
[2017-12-24] MEDS ORDERED: NOREPINEPHRINE 4 MG/4 ML VIAL IV ONE (17:10)
[2017-12-24 17:12] LABS: ABG PH 7.122 (7.35-7.45)
[2017-12-24 17:12] LABS: Basophils % 0.7 % (0.0-0.8); Eosinophils % 0.5 % (0.00-10.9); Hematocrit 24.5 VOL% (42.0-52.0); Hemoglobin 8.3 GM/DL (14.0-18.0); Immature Granulocytes % 6.1 %; Immature Granulocytes Absolute 0.35 #; Lymphocytes # 0.5 10*3/uL (1.4-4.0); Lymphocytes % 8.2 % (21.2-54.2); Mean Corpuscular HGB Conc 33.9 GM/DL (32-36); Mean Corpuscular Hemoglobin 31 PG (27-34); Mean Corpuscular Volume 91.8 FL (87-102); Mean Platelet Volume 11.8 FL (9.6-12.0); Monocytes # 0.3 10*3/uL (0.11-0.8); Monocytes % 5.6 % (1.7-12.7); NRBC # 0.18 10*3/uL; Neutrophils # 4.5 10*3/uL (1.4-7.4); Neutrophils % 78.9 % (38.7-73.9); Platelet Count 152 T/CUMM (130-400); Red Blood Count 2.67 MC/CUMM (3.8-5.5); Red Cell Distribution Width 15.4 % (9.3-17.3); White Blood Count 5.7 T/CUMM (4-12)
[2017-12-24] MEDS ORDERED: PROPOFOL 1,000 MG/100 ML BOTTLE IV ONE (17:16)
[2017-12-24] MEDS ORDERED: NOREPINEPHRINE 8 MG in SODIUM CHLORIDE 0.9% 242 ML IV PRN (17:32)
[2017-12-24 17:39] LABS: Band Neutrophils 6 % (0-10); Lymphocytes 15 % (20-55); Nucleated Red Blood Cells 5 (0-5); Segmented Neutrophils 62 % (50-85); Total Cells Counted 100
[2017-12-24 17:40] LABS: Hypochromasia 1+; Platelet Estimate Adequate; Polychromasia Few
[2017-12-24 17:41] LABS: Calcium 7.4 MG/DL (8.5-10.1); Osmolality,Calculated 270.5 MOS/KG (273-304); Potassium 2.8 MMOL/L (3.5-5.1)
[2017-12-24 17:42] LABS: Giant Platelets Few; Macrocytosis Slight
[2017-12-24] MEDS: PIPERACILLIN/TAZOBACTAM 3,375 MG in SODIUM CHLORIDE 0.9% 100 ML IV SCH (17:58)
[2017-12-24] MEDS ORDERED: SODIUM BICARB INJ 150 MEQ in DEXTROSE 5% 850 ML IV SCH (18:00)
[2017-12-24] MEDS: DOPamine 800 MG/250 ML PREMIX IV PRN ×4 (18:00→22:42)
[2017-12-24] MEDS ORDERED: DOPamine 800 MG/250 ML PREMIX IV PRN (18:04)
[2017-12-24 18:21] LABS: ABG Base Excess -8.5 MMOL/L (-2.5-2.5); ABG HCO3 17.5 MMOL/L (20-26); ABG Oxygen Saturation 99.2 % (95-100); ABG PH 7.292 (7.35-7.45); ABG TCO2 16.5 MMOL/L (23-27)
[2017-12-24] MEDS ORDERED: POTASSIUM CHLORIDE RIDER 100 ML IV ONE (19:04)
[2017-12-24] MEDS: MIDAZOLAM 2 MG/2 ML VIAL IV PRN (20:18)
[2017-12-24] MEDS: PHENYLEPHRINE DRIP 40 MG/250 ML PREMIX IV PRN (20:31)
[2017-12-24] MEDS ORDERED: SODIUM CHLORIDE 0.9% 2,000 ML IV ONE (20:42)
[2017-12-24] MEDS: PHENYLEPHRINE INJ 160 MG in SODIUM CHLORIDE 0.9% 234 ML IV PRN (21:19)
[2017-12-24] MEDS: SODIUM BICARB INJ 150 MEQ in DEXTROSE 5% 850 ML IV SCH (21:35)
[2017-12-24] MEDS: fentaNYL INJ 1,250 MCG in SODIUM CHLORIDE 0.9% 225 ML IV PRN (21:40)
[2017-12-24] MEDS: MIDAZOLAM 100 MG in SODIUM CHLORIDE 0.9% 80 ML IV PRN (21:40)
[2017-12-24] MEDS: ATORVASTATIN 80 MG TABLET PO SCH (22:12)
[2017-12-24] MEDS: ENOXAPARIN 30 MG/0.3 ML SYRINGE SUBCUT SCH (22:12)
[2017-12-24] MEDS: NOREPINEPHRINE 16 MG in SODIUM CHLORIDE 0.9% 234 ML IV PRN (22:14)
[2017-12-24] MEDS ORDERED: POTASSIUM CHLORIDE INJ 50 MEQ in SODIUM CHLORIDE 0.9% 475 ML IV SCH (23:00)
[2017-12-25] MEDS: SODIUM BICARB INJ 150 MEQ in DEXTROSE 5% 850 ML IV SCH ×7 (00:08→22:54)
[2017-12-25] MEDS: INSULIN LISPRO 100 UNIT/ML SUBCUT SCH ×4 (00:09→18:46)
[2017-12-25 04:12] LABS: ABG Base Excess -4.9 MMOL/L (-2.5-2.5); ABG HCO3 20.3 MMOL/L (20-26); ABG Oxygen Saturation 96.9 % (95-100); ABG PCO2 43.9 MM HG (35-48); ABG PH 7.295 (7.35-7.45); ABG TCO2 20.3 MMOL/L (23-27); Pt O2 Delivery Device Ventilator
[2017-12-25] MEDS: ALBUMIN 25% 12.5 GM in PREMIX 1 EACH IV SCH ×3 (04:26→18:46)
[2017-12-25 05:01] LABS: Basophils # 0.1 10*3/uL (0.0-0.2); Basophils % 1.1 % (0.0-0.8); Eosinophils % 0.2 % (0.00-10.9); Hematocrit 20.6 VOL% (42.0-52.0); Hemoglobin 7.2 GM/DL (14.0-18.0); Immature Granulocytes % 1.5 %; Immature Granulocytes Absolute 0.08 #; Lymphocytes # 0.2 10*3/uL (1.4-4.0); Lymphocytes % 3.7 % (21.2-54.2); Mean Corpuscular Hemoglobin 31 PG (27-34); Mean Corpuscular Volume 87.7 FL (87-102); Mean Platelet Volume 11.5 FL (9.6-12.0); Monocytes # 0.2 10*3/uL (0.11-0.8); Monocytes % 3.5 % (1.7-12.7); NRBC # 0.21 10*3/uL; Neutrophils # 4.9 10*3/uL (1.4-7.4); Platelet Count 164 T/CUMM (130-400); Red Blood Count 2.35 MC/CUMM (3.8-5.5); Red Cell Distribution Width 15.4 % (9.3-17.3); White Blood Count 5.4 T/CUMM (4-12)
[2017-12-25 05:19] LABS: Calcium 6.2 MG/DL (8.5-10.1); Osmolality,Calculated 279.2 MOS/KG (273-304); Potassium 3.2 MMOL/L (3.5-5.1)
[2017-12-25 05:21] LABS: Albumin 1.5 G/DL (3.4-5.0); Bilirubin,Direct 6.08 MG/DL (0.0-0.20); Bilirubin,Indirect 1.1 MG/DL (0.0-1.0); Bilirubin,Total 7.2 MG/DL (0.2-1.0); Total Protein 5.3 G/DL (6.4-8.3)
[2017-12-25 05:32] LABS: Band Neutrophils 16 % (0-10); Eosinophils 1 % (0-10); Hypochromasia 1+; Lymphocytes 2 % (20-55); Microcytosis Slight; Myelocytes 2 %; Nucleated Red Blood Cells 4 (0-5); Segmented Neutrophils 75 % (50-85); Total Cells Counted 100
[2017-12-25 05:33] LABS: Platelet Estimate Adequate
[2017-12-25] MEDS: MAGNESIUM SULF RIDER 2 GM in PREMIX 1 EACH IV PRN (05:39)
[2017-12-25] MEDS: PIPERACILLIN/TAZOBACTAM 3,375 MG in SODIUM CHLORIDE 0.9% 100 ML IV SCH ×2 (05:41→18:47)
[2017-12-25] MEDS ORDERED: SODIUM CHLORIDE 0.9% 500 ML IV ONE (05:43)
[2017-12-25] MEDS ORDERED: SODIUM CHLORIDE 0.9% 1,000 ML IV SCH (06:00)
[2017-12-25] MEDS: NOREPINEPHRINE 16 MG in SODIUM CHLORIDE 0.9% 234 ML IV PRN ×3 (06:33→21:02)
[2017-12-25] MEDS: POTASSIUM CHLORIDE RIDER 10 MEQ in PREMIX 1 EACH IV PRN ×3 (06:42→08:56)
[2017-12-25] MEDS: FENOFIBRATE 145 MG TABLET PO SCH (09:49)
[2017-12-25] MEDS: PANTOPRAZOLE 40 MG VIAL IV SCH (09:49)
[2017-12-25] MEDS: OMEGA 3 ACID ETHYL ESTERS 1 GM CAPSULE PO SCH ×2 (09:49→20:24)
[2017-12-25] MEDS: DOPamine 800 MG/250 ML PREMIX IV PRN ×2 (09:50→18:47)
[2017-12-25] MEDS: fentaNYL INJ 1,250 MCG in SODIUM CHLORIDE 0.9% 225 ML IV PRN (11:31)
[2017-12-25] MEDS: MIDAZOLAM 100 MG in SODIUM CHLORIDE 0.9% 80 ML IV PRN (11:32)
[2017-12-25] MEDS: PHENYLEPHRINE INJ 160 MG in SODIUM CHLORIDE 0.9% 234 ML IV PRN ×2 (14:03→22:03)
[2017-12-25] MEDS ORDERED: SODIUM CHLORIDE 0.9% 1,000 ML IV PRN (18:07)
[2017-12-25] MEDS: ATORVASTATIN 80 MG TABLET PO SCH (20:24)
[2017-12-25] MEDS: ENOXAPARIN 30 MG/0.3 ML SYRINGE SUBCUT SCH (20:24)
[2017-12-26] MEDS: INSULIN LISPRO 100 UNIT/ML SUBCUT SCH ×4 (00:29→18:59)
[2017-12-26] MEDS: ALBUMIN 25% 12.5 GM in PREMIX 1 EACH IV SCH ×3 (02:37→19:02)
[2017-12-26] MEDS: SODIUM BICARB INJ 150 MEQ in DEXTROSE 5% 850 ML IV SCH ×5 (03:19→23:15)
[2017-12-26 03:24] LABS: ABG Base Excess 1.7 MMOL/L (-2.5-2.5); ABG HCO3 26.4 MMOL/L (20-26); ABG Oxygen Saturation 87.6 % (95-100); ABG PCO2 42.1 MM HG (35-48); ABG PH 7.416 (7.35-7.45); ABG PO2 61.4 MM HG (80-95); ABG TCO2 27.7 MMOL/L (23-27); Allen Test Positive; Pt O2 Delivery Device Ventilator
[2017-12-26] MEDS: NOREPINEPHRINE 16 MG in SODIUM CHLORIDE 0.9% 234 ML IV PRN ×3 (03:45→18:52)
[2017-12-26 04:58] LABS: Hematocrit 22.2 VOL% (42.0-52.0); Hemoglobin 7.9 GM/DL (14.0-18.0)
[2017-12-26] MEDS: PHENYLEPHRINE INJ 160 MG in SODIUM CHLORIDE 0.9% 234 ML IV PRN ×3 (05:06→19:35)
[2017-12-26] MEDS: PIPERACILLIN/TAZOBACTAM 3,375 MG in SODIUM CHLORIDE 0.9% 100 ML IV SCH ×2 (05:06→18:47)
[2017-12-26] MEDS: DOPamine 800 MG/250 ML PREMIX IV PRN (05:14)
[2017-12-26 05:30] LABS: Bilirubin,Direct 4.14 MG/DL (0.0-0.20); Bilirubin,Total 5.1 MG/DL (0.2-1.0)
[2017-12-26 05:31] LABS: Albumin 1.7 G/DL (3.4-5.0); Bilirubin,Total 4.8 MG/DL (0.2-1.0); Osmolality,Calculated 279.1 MOS/KG (273-304); Potassium 3.5 MMOL/L (3.5-5.1); Total Protein 5.5 G/DL (6.4-8.3); Total Protein 5.6 G/DL (6.4-8.3)
[2017-12-26 05:33] LABS: Calcium 5.3 MG/DL (8.5-10.1)
[2017-12-26] MEDS ORDERED: CALCIUM GLUCONATE 1,000 MG in SODIUM CHLORIDE 0.9% 100 ML IV ONE (05:38)
[2017-12-26] MEDS ORDERED: POTASSIUM CHLORIDE RIDER 100 ML IV ONE (07:41)
[2017-12-26] MEDS: POTASSIUM CHLORIDE RIDER 10 MEQ in PREMIX 1 EACH IV PRN (07:45)
[2017-12-26] MEDS: MAGNESIUM SULF RIDER 2 GM in PREMIX 1 EACH IV PRN (07:46)
[2017-12-26] MEDS: POTASSIUM CHLORIDE RIDER 20 MEQ in PREMIX 1 EACH IV PRN (08:52)
[2017-12-26] MEDS: PANTOPRAZOLE 40 MG VIAL IV SCH (12:40)
[2017-12-26] MEDS: FENOFIBRATE 145 MG TABLET PO SCH (12:40)
[2017-12-26] MEDS: OMEGA 3 ACID ETHYL ESTERS 1 GM CAPSULE PO SCH ×2 (12:43→21:48)
[2017-12-26] MEDS ORDERED: HEPARIN 10,000 UNIT/10 ML VIAL IV PRN (15:32)
[2017-12-26] MEDS: LEVOFLOXACIN INJ 250 MG in PREMIX 1 EACH IV SCH (19:30)
[2017-12-26] MEDS: ATORVASTATIN 80 MG TABLET PO SCH (21:48)
[2017-12-26] MEDS: ENOXAPARIN 30 MG/0.3 ML SYRINGE SUBCUT SCH (21:48)
[2017-12-27] MEDS: INSULIN LISPRO 100 UNIT/ML SUBCUT SCH ×4 (00:45→18:47)
[2017-12-27] MEDS: ALBUMIN 25% 12.5 GM in PREMIX 1 EACH IV SCH ×3 (01:58→18:44)
[2017-12-27] MEDS: SODIUM BICARB INJ 150 MEQ in DEXTROSE 5% 850 ML IV SCH ×4 (01:58→20:26)
[2017-12-27] MEDS: NOREPINEPHRINE 16 MG in SODIUM CHLORIDE 0.9% 234 ML IV PRN ×3 (01:59→22:46)
[2017-12-27] MEDS: PHENYLEPHRINE INJ 160 MG in SODIUM CHLORIDE 0.9% 234 ML IV PRN ×3 (02:45→18:17)
[2017-12-27 03:58] LABS: ABG Base Excess 4.5 MMOL/L (-2.5-2.5); ABG HCO3 28.5 MMOL/L (20-26); ABG PCO2 45.8 MM HG (35-48); ABG PH 7.418 (7.35-7.45); ABG TCO2 27.5 MMOL/L (23-27); Allen Test Positive; Pt O2 Delivery Device Ventilator
[2017-12-27] MEDS: PIPERACILLIN/TAZOBACTAM 3,375 MG in SODIUM CHLORIDE 0.9% 100 ML IV SCH ×2 (05:26→18:43)
[2017-12-27] MEDS: MIDAZOLAM 100 MG in SODIUM CHLORIDE 0.9% 80 ML IV PRN ×2 (05:27→13:30)
[2017-12-27 05:49] LABS: Basophils # 0.1 10*3/uL (0.0-0.2); Basophils % 0.3 % (0.0-0.8); Eosinophils # 0.1 10*3/uL (0.0-0.87); Eosinophils % 0.5 % (0.00-10.9); Hematocrit 21.3 VOL% (42.0-52.0); Hemoglobin 7.5 GM/DL (14.0-18.0); Lymphocytes # 0.5 10*3/uL (1.4-4.0); Lymphocytes % 3.3 % (21.2-54.2); Mean Corpuscular HGB Conc 35.2 GM/DL (32-36); Mean Corpuscular Hemoglobin 30 PG (27-34); Mean Corpuscular Volume 84.5 FL (87-102); Mean Platelet Volume 10.5 FL (9.6-12.0); Monocytes # 0.7 10*3/uL (0.11-0.8); Monocytes % 5.1 % (1.7-12.7); NRBC # 0.04 10*3/uL; Neutrophils # 11.8 10*3/uL (1.4-7.4); Neutrophils % 81.8 % (38.7-73.9); Red Blood Count 2.52 MC/CUMM (3.8-5.5); Red Cell Distribution Width 17.1 % (9.3-17.3); White Blood Count 14.4 T/CUMM (4-12)
[2017-12-27 05:51] LABS: Platelet Count 111 T/CUMM (130-400)
[2017-12-27 06:02] LABS: Osmolality,Calculated 277.8 MOS/KG (273-304); Potassium 3.3 MMOL/L (3.5-5.1)
[2017-12-27 06:04] LABS: Albumin 1.6 G/DL (3.4-5.0); Bilirubin,Direct 3.32 MG/DL (0.0-0.20); Bilirubin,Indirect 0.6 MG/DL (0.0-1.0); Bilirubin,Total 3.9 MG/DL (0.2-1.0); Total Protein 5.2 G/DL (6.4-8.3)
[2017-12-27 06:05] LABS: Calcium 5.7 MG/DL (8.5-10.1)
[2017-12-27 06:22] LABS: Band Neutrophils 2 % (0-10); Eosinophils 2 % (0-10); Lymphocytes 4 % (20-55); Platelet Estimate Decreased; Segmented Neutrophils 86 % (50-85); Total Cells Counted 100
[2017-12-27 06:23] LABS: Hypochromasia 1+; Microcytosis Slight
[2017-12-27] MEDS ORDERED: CALCIUM GLUCONATE 1,000 MG in SODIUM CHLORIDE 0.9% 100 ML IV ONE (06:29)
[2017-12-27] MEDS: POTASSIUM CHLORIDE RIDER 20 MEQ in PREMIX 1 EACH IV PRN ×3 (09:07→19:41)
[2017-12-27] MEDS: FENOFIBRATE 145 MG TABLET PO SCH (09:07)
[2017-12-27] MEDS: PANTOPRAZOLE 40 MG VIAL IV SCH (09:07)
[2017-12-27] MEDS: OMEGA 3 ACID ETHYL ESTERS 1 GM CAPSULE PO SCH ×2 (09:07→20:27)
[2017-12-27] MEDS: HYDROCORTISONE 100 MG VIAL IV SCH ×2 (11:52→18:42)
[2017-12-27] MEDS: VANCOMYCIN 50 MG/ML 60 ML/BOTTLE PER TUBE SCH ×3 (11:53→22:23)
[2017-12-27] MEDS: fentaNYL INJ 1,250 MCG in SODIUM CHLORIDE 0.9% 225 ML IV PRN (15:35)
[2017-12-27] MEDS ORDERED: LORazepam INJ 40 MG in DEXTROSE 5% 30 ML IV PRN (17:47)
[2017-12-27] MEDS: DEXMEDETOMIDINE 200 MCG in SODIUM CHLORIDE 0.9% 48 ML IV PRN (19:02)
[2017-12-27] MEDS: ENOXAPARIN 30 MG/0.3 ML SYRINGE SUBCUT SCH (20:27)
[2017-12-27] MEDS: ATORVASTATIN 80 MG TABLET PO SCH (20:27)
[2017-12-28] MEDS: DEXMEDETOMIDINE 200 MCG in SODIUM CHLORIDE 0.9% 48 ML IV PRN ×4 (00:08→20:00)
[2017-12-28] MEDS: INSULIN LISPRO 100 UNIT/ML SUBCUT SCH ×4 (01:05→19:21)
[2017-12-28] MEDS: HYDROCORTISONE 100 MG VIAL IV SCH ×3 (01:06→20:19)
[2017-12-28] MEDS: ALBUMIN 25% 12.5 GM in PREMIX 1 EACH IV SCH ×3 (02:28→20:18)
[2017-12-28] MEDS: VANCOMYCIN 50 MG/ML 60 ML/BOTTLE PER TUBE SCH ×4 (04:24→21:52)
[2017-12-28] MEDS: SODIUM BICARB INJ 150 MEQ in DEXTROSE 5% 850 ML IV SCH ×3 (04:24→22:23)
[2017-12-28 05:02] LABS: Basophils # 0.1 10*3/uL (0.0-0.2); Basophils % 0.2 % (0.0-0.8); Hematocrit 21.8 VOL% (42.0-52.0); Hemoglobin 7.4 GM/DL (14.0-18.0); Immature Granulocytes % 12.5 %; Immature Granulocytes Absolute 2.55 #; Lymphocytes # 0.5 10*3/uL (1.4-4.0); Lymphocytes % 2.2 % (21.2-54.2); Mean Corpuscular HGB Conc 33.9 GM/DL (32-36); Mean Corpuscular Hemoglobin 30 PG (27-34); Mean Corpuscular Volume 87.6 FL (87-102); Mean Platelet Volume 10.3 FL (9.6-12.0); Monocytes # 1.1 10*3/uL (0.11-0.8); Monocytes % 5.1 % (1.7-12.7); Neutrophils # 16.4 10*3/uL (1.4-7.4); Red Blood Count 2.49 MC/CUMM (3.8-5.5); Red Cell Distribution Width 17.7 % (9.3-17.3)
[2017-12-28 05:05] LABS: Platelet Count 87 T/CUMM (130-400)
[2017-12-28 05:06] LABS: White Blood Count 20.5 T/CUMM (4-12)
[2017-12-28 05:22] LABS: Calcium 5.9 MG/DL (8.5-10.1); Osmolality,Calculated 281.5 MOS/KG (273-304); Potassium 4.2 MMOL/L (3.5-5.1)
[2017-12-28 05:28] LABS: Band Neutrophils 3 % (0-10); Lymphocytes 10 % (20-55); Platelet Estimate Decreased; Segmented Neutrophils 85 % (50-85); Total Cells Counted 100
[2017-12-28 05:29] LABS: Anisocytosis 1+; Macrocytosis 1+
[2017-12-28] MEDS: PIPERACILLIN/TAZOBACTAM 3,375 MG in SODIUM CHLORIDE 0.9% 100 ML IV SCH ×2 (05:45→20:18)
[2017-12-28] MEDS: OMEGA 3 ACID ETHYL ESTERS 1 GM CAPSULE PO SCH ×2 (09:11→20:20)
[2017-12-28] MEDS: FENOFIBRATE 145 MG TABLET PO SCH (09:11)
[2017-12-28] MEDS: PANTOPRAZOLE 40 MG VIAL IV SCH (09:11)
[2017-12-28] MEDS: ALBUTEROL/IPRATROPIUM 3 ML NEB RESP TX PRN (15:00)
[2017-12-28] MEDS: LEVOFLOXACIN INJ 250 MG in PREMIX 1 EACH IV SCH (20:19)
[2017-12-28] MEDS: ATORVASTATIN 80 MG TABLET PO SCH (20:20)
[2017-12-28] MEDS: ENOXAPARIN 30 MG/0.3 ML SYRINGE SUBCUT SCH (20:20)
[2017-12-29] MEDS: INSULIN LISPRO 100 UNIT/ML SUBCUT SCH ×4 (00:18→17:57)
[2017-12-29] MEDS: DEXMEDETOMIDINE 200 MCG in SODIUM CHLORIDE 0.9% 48 ML IV PRN (00:19)
[2017-12-29] MEDS: HYDROCORTISONE 100 MG VIAL IV SCH ×3 (01:09→18:15)
[2017-12-29] MEDS: SODIUM BICARB INJ 150 MEQ in DEXTROSE 5% 850 ML IV SCH ×3 (01:10→18:07)
[2017-12-29] MEDS: MORPHINE 4 MG/1 ML VIAL IV PRN ×2 (02:42→19:45)
[2017-12-29] MEDS: DIAZEPAM 5 MG TABLET PO PRN ×3 (02:43→16:44)
[2017-12-29] MEDS: DEXMEDETOMIDINE 400 MCG in SODIUM CHLORIDE 0.9% 96 ML IV PRN ×5 (03:17→22:57)
[2017-12-29] MEDS: ALBUMIN 25% 12.5 GM in PREMIX 1 EACH IV SCH ×3 (03:18→18:09)
[2017-12-29] MEDS: VANCOMYCIN 50 MG/ML 60 ML/BOTTLE PER TUBE SCH ×4 (03:23→21:17)
[2017-12-29 04:21] LABS: Basophils # 0.1 10*3/uL (0.0-0.2); Basophils % 0.4 % (0.0-0.8); Eosinophils % 0.1 % (0.00-10.9); Hematocrit 24.2 VOL% (42.0-52.0); Hemoglobin 8.3 GM/DL (14.0-18.0); Immature Granulocytes % 10.5 %; Immature Granulocytes Absolute 2.08 #; Lymphocytes # 0.6 10*3/uL (1.4-4.0); Lymphocytes % 2.8 % (21.2-54.2); Mean Corpuscular HGB Conc 34.3 GM/DL (32-36); Mean Corpuscular Hemoglobin 29 PG (27-34); Mean Corpuscular Volume 85.5 FL (87-102); Monocytes # 1.1 10*3/uL (0.11-0.8); Monocytes % 5.5 % (1.7-12.7); NRBC # 0.06 10*3/uL; Neutrophils % 80.7 % (38.7-73.9); Red Blood Count 2.83 MC/CUMM (3.8-5.5); Red Cell Distribution Width 17.8 % (9.3-17.3); White Blood Count 19.8 T/CUMM (4-12)
[2017-12-29 04:35] LABS: Platelet Count 82 T/CUMM (130-400)
[2017-12-29 04:39] LABS: ABG Base Excess 4.4 MMOL/L (-2.5-2.5); ABG HCO3 28.4 MMOL/L (20-26); ABG Oxygen Saturation 99.1 % (95-100); ABG PCO2 39.6 MM HG (35-48); ABG PH 7.464 (7.35-7.45); ABG TCO2 26.6 MMOL/L (23-27); Pt O2 Delivery Device Ventilator
[2017-12-29 04:48] LABS: Band Neutrophils 2 % (0-10); Hypochromasia 1+; Lymphocytes 3 % (20-55); Platelet Estimate Decreased; Segmented Neutrophils 85 % (50-85); Total Cells Counted 100
[2017-12-29 04:49] LABS: Microcytosis Slight
[2017-12-29 04:55] LABS: Albumin 1.6 G/DL (3.4-5.0); Bilirubin,Total 2.3 MG/DL (0.2-1.0); Calcium 6.2 MG/DL (8.5-10.1); Osmolality,Calculated 285.4 MOS/KG (273-304); Potassium 4.3 MMOL/L (3.5-5.1); Total Protein 5.7 G/DL (6.4-8.3)
[2017-12-29] MEDS: PIPERACILLIN/TAZOBACTAM 3,375 MG in SODIUM CHLORIDE 0.9% 100 ML IV SCH ×2 (05:10→18:15)
[2017-12-29] MEDS: PANTOPRAZOLE 40 MG VIAL IV SCH (08:09)
[2017-12-29] MEDS: FENOFIBRATE 145 MG TABLET PO SCH (08:09)
[2017-12-29] MEDS: OMEGA 3 ACID ETHYL ESTERS 1 GM CAPSULE PO SCH ×2 (08:11→21:18)
[2017-12-29] MEDS: NOREPINEPHRINE 16 MG in SODIUM CHLORIDE 0.9% 234 ML IV PRN (10:01)
[2017-12-29] MEDS: ATORVASTATIN 80 MG TABLET PO SCH (21:18)
[2017-12-29] MEDS: ENOXAPARIN 30 MG/0.3 ML SYRINGE SUBCUT SCH (21:18)
[2017-12-30] MEDS: INSULIN LISPRO 100 UNIT/ML SUBCUT SCH ×4 (01:45→18:27)
[2017-12-30] MEDS: HYDROCORTISONE 100 MG VIAL IV SCH ×3 (02:04→18:29)
[2017-12-30] MEDS: ALBUMIN 25% 12.5 GM in PREMIX 1 EACH IV SCH ×3 (02:05→18:29)
[2017-12-30] MEDS: SODIUM BICARB INJ 150 MEQ in DEXTROSE 5% 850 ML IV SCH (02:11)
[2017-12-30] MEDS: MORPHINE 4 MG/1 ML VIAL IV PRN ×3 (02:43→20:11)
[2017-12-30 03:34] LABS: ABG Base Excess 3.8 MMOL/L (-2.5-2.5); ABG HCO3 29.3 MMOL/L (20-26); ABG Oxygen Saturation 97.8 % (95-100); ABG PCO2 49.1 MM HG (35-48); ABG PH 7.393 (7.35-7.45); ABG PO2 136.7 MM HG (80-95); ABG TCO2 30.8 MMOL/L (23-27); Allen Test Positive; Pt O2 Delivery Device Ventilator
[2017-12-30] MEDS: DEXMEDETOMIDINE 400 MCG in SODIUM CHLORIDE 0.9% 96 ML IV PRN ×5 (04:26→23:58)
[2017-12-30] MEDS: DIAZEPAM 5 MG TABLET PO PRN ×3 (04:28→16:03)
[2017-12-30] MEDS: VANCOMYCIN 50 MG/ML 60 ML/BOTTLE PER TUBE SCH ×4 (05:00→21:06)
[2017-12-30 05:14] LABS: Calcium 6.5 MG/DL (8.5-10.1); Osmolality,Calculated 285.5 MOS/KG (273-304); Potassium 4.6 MMOL/L (3.5-5.1)
[2017-12-30] MEDS: PIPERACILLIN/TAZOBACTAM 3,375 MG in SODIUM CHLORIDE 0.9% 100 ML IV SCH ×2 (06:40→18:28)
[2017-12-30] MEDS: OMEGA 3 ACID ETHYL ESTERS 1 GM CAPSULE PO SCH ×2 (08:17→21:06)
[2017-12-30] MEDS: FENOFIBRATE 145 MG TABLET PO SCH (08:18)
[2017-12-30] MEDS: PANTOPRAZOLE 40 MG VIAL IV SCH (08:18)
[2017-12-30 08:54] LABS: ABG Base Excess 2.3 MMOL/L (-2.5-2.5); ABG HCO3 26.5 MMOL/L (20-26); ABG Oxygen Saturation 98.6 % (95-100); ABG PCO2 57.6 MM HG (35-48); ABG PH 7.316 (7.35-7.45); ABG TCO2 27.4 MMOL/L (23-27)
[2017-12-30] MEDS: LEVOFLOXACIN INJ 250 MG in PREMIX 1 EACH IV SCH (16:03)
[2017-12-30] MEDS: MIDAZOLAM 2 MG/2 ML VIAL IV PRN (20:12)
[2017-12-30] MEDS: ATORVASTATIN 80 MG TABLET PO SCH (21:06)
[2017-12-30] MEDS: ENOXAPARIN 30 MG/0.3 ML SYRINGE SUBCUT SCH (21:06)
[2017-12-31] MEDS: INSULIN LISPRO 100 UNIT/ML SUBCUT SCH ×4 (00:51→18:30)
[2017-12-31] MEDS: HYDROCORTISONE 100 MG VIAL IV SCH ×3 (01:08→22:30)
[2017-12-31] MEDS: MORPHINE 4 MG/1 ML VIAL IV PRN ×2 (01:09→10:40)
[2017-12-31] MEDS: MIDAZOLAM 2 MG/2 ML VIAL IV PRN ×2 (01:09→10:40)
[2017-12-31] MEDS: ALBUMIN 25% 12.5 GM in PREMIX 1 EACH IV SCH ×3 (03:36→18:29)
[2017-12-31 03:45] LABS: ABG Base Excess 0.7 MMOL/L (-2.5-2.5); ABG Oxygen Saturation 97.1 % (95-100); ABG PCO2 57.7 MM HG (35-48); ABG PH 7.291 (7.35-7.45); ABG TCO2 26.5 MMOL/L (23-27); Allen Test Positive; Pt O2 Delivery Device Ventilator
[2017-12-31] MEDS: VANCOMYCIN 50 MG/ML 60 ML/BOTTLE PER TUBE SCH ×4 (05:16→22:31)
[2017-12-31] MEDS: PIPERACILLIN/TAZOBACTAM 3,375 MG in SODIUM CHLORIDE 0.9% 100 ML IV SCH ×2 (05:17→18:29)
[2017-12-31] MEDS: DEXMEDETOMIDINE 400 MCG in SODIUM CHLORIDE 0.9% 96 ML IV PRN ×6 (05:18→22:32)
[2017-12-31 05:50] LABS: Basophils % 0.2 % (0.0-0.8); Eosinophils % 0.1 % (0.00-10.9); Hematocrit 22.5 VOL% (42.0-52.0); Hemoglobin 7.2 GM/DL (14.0-18.0); Immature Granulocytes Absolute 0.69 #; Lymphocytes # 0.7 10*3/uL (1.4-4.0); Lymphocytes % 4.1 % (21.2-54.2); Mean Corpuscular Hemoglobin 29 PG (27-34); Mean Corpuscular Volume 91.8 FL (87-102); Mean Platelet Volume 11.4 FL (9.6-12.0); Monocytes # 1.4 10*3/uL (0.11-0.8); Monocytes % 7.8 % (1.7-12.7); NRBC # 0.04 10*3/uL; Neutrophils # 14.4 10*3/uL (1.4-7.4); Neutrophils % 83.8 % (38.7-73.9); Red Blood Count 2.45 MC/CUMM (3.8-5.5); Red Cell Distribution Width 17.5 % (9.3-17.3); White Blood Count 17.2 T/CUMM (4-12)
[2017-12-31 05:55] LABS: Platelet Count 61 T/CUMM (130-400)
[2017-12-31 06:14] LABS: Osmolality,Calculated 289.4 MOS/KG (273-304)
[2017-12-31] MEDS: PANTOPRAZOLE 40 MG VIAL IV SCH (10:07)
[2017-12-31] MEDS: FAMOTIDINE 20 MG TABLET PO SCH ×2 (10:08→22:30)
[2017-12-31] MEDS: FENOFIBRATE 145 MG TABLET PO SCH (10:08)
[2017-12-31] MEDS: OMEGA 3 ACID ETHYL ESTERS 1 GM CAPSULE PO SCH ×2 (10:08→22:10)
[2017-12-31 11:53] LABS: Band Neutrophils 5 % (0-10); Lymphocytes 3 % (20-55); Segmented Neutrophils 88 % (50-85); Total Cells Counted 100
[2017-12-31 11:54] LABS: Anisocytosis Slight; Hypochromasia Slight; Microcytosis Slight; Platelet Estimate Decreased; Polychromasia Slight
[2017-12-31] MEDS: amLODIPine 5 MG TABLET PO ONE ×2 (16:57→17:42)
[2017-12-31] MEDS: METOPROLOL TARTRATE 5 MG/5 ML VIAL IV ONE ×2 (16:57→17:41)
[2017-12-31] MEDS: ATORVASTATIN 80 MG TABLET PO SCH (22:10)
[2018-01-01] MEDS: INSULIN LISPRO 100 UNIT/ML SUBCUT SCH ×4 (01:32→17:39)
[2018-01-01] MEDS: ALBUMIN 25% 12.5 GM in PREMIX 1 EACH IV SCH ×3 (03:04→17:40)
[2018-01-01] MEDS: DEXMEDETOMIDINE 400 MCG in SODIUM CHLORIDE 0.9% 96 ML IV PRN (03:09)
[2018-01-01] MEDS: MIDAZOLAM 2 MG/2 ML VIAL IV PRN (03:27)
[2018-01-01] MEDS: MORPHINE 4 MG/1 ML VIAL IV PRN ×2 (03:27→13:47)
[2018-01-01] MEDS: VANCOMYCIN 50 MG/ML 60 ML/BOTTLE PER TUBE SCH ×4 (03:27→21:25)
[2018-01-01] MEDS: DIAZEPAM 5 MG TABLET PO PRN (03:28)
[2018-01-01 03:43] LABS: Allen Test Positive; Pt O2 Delivery Device Ventilator
[2018-01-01 03:50] LABS: ABG Base Excess -1.6 MMOL/L (-2.5-2.5); ABG HCO3 23.1 MMOL/L (20-26); ABG Oxygen Saturation 97.7 % (95-100); ABG PCO2 57.9 MM HG (35-48); ABG PH 7.257 (7.35-7.45); ABG TCO2 24.9 MMOL/L (23-27)
[2018-01-01 04:25] LABS: Calcium 7.1 MG/DL (8.5-10.1); Osmolality,Calculated 306.4 MOS/KG (273-304); Potassium 5.1 MMOL/L (3.5-5.1); Prealbumin 11.4 MG/DL (20-40)
[2018-01-01] MEDS ORDERED: DEXMEDETOMIDINE 200 MCG/2 ML VIAL IV ONE (05:39)
[2018-01-01] MEDS: PIPERACILLIN/TAZOBACTAM 3,375 MG in SODIUM CHLORIDE 0.9% 100 ML IV SCH ×2 (06:40→17:40)
[2018-01-01] MEDS: FAMOTIDINE 20 MG TABLET PO SCH ×2 (09:15→20:44)
[2018-01-01] MEDS: FENOFIBRATE 145 MG TABLET PO SCH (09:15)
[2018-01-01] MEDS: OMEGA 3 ACID ETHYL ESTERS 1 GM CAPSULE PO SCH ×2 (09:15→20:43)
[2018-01-01] MEDS: HYDROCORTISONE 100 MG VIAL IV SCH ×2 (09:15→20:44)
[2018-01-01] MEDS ORDERED: SODIUM CHLORIDE 0.9% 1,000 ML IV PRN (12:06)
[2018-01-01 13:21] LABS: Hematocrit 22.6 VOL% (42.0-52.0); Hemoglobin 7.5 GM/DL (14.0-18.0)
[2018-01-01] MEDS: ONDANSETRON 4 MG/2 ML VIAL IV PRN (13:48)
[2018-01-01] MEDS ORDERED: MORPHINE 4 MG/1 ML VIAL IV ONE (13:55)
[2018-01-01] MEDS ORDERED: LORazepam 2 MG/1 ML VIAL ONE (13:57)
[2018-01-01] MEDS: LORazepam 2 MG/1 ML VIAL IV PRN ×2 (14:21→18:31)
[2018-01-01] MEDS ORDERED: AMIODARONE INJ 150 MG in DEXTROSE 5% 100 ML IV ONE (15:27)
[2018-01-01] MEDS ORDERED: cloNIDine 0.3 MG/24 HR PATCH TRANSDERM SCH (15:30)
[2018-01-01] MEDS ORDERED: AMIODARONE 150 MG/3 ML VIAL ONE (15:37)
[2018-01-01] MEDS: amLODIPine 10 MG TABLET PO SCH (15:51)
[2018-01-01] MEDS: LOSARTAN 25 MG TABLET PO SCH ×2 (16:29→20:43)
[2018-01-01] MEDS: LEVOFLOXACIN INJ 250 MG in PREMIX 1 EACH IV SCH (16:36)
[2018-01-01] MEDS ORDERED: AMIODARONE INJ 450 MG in DEXTROSE 5% 241 ML IV SCH (20:00)
[2018-01-01] MEDS: ATORVASTATIN 80 MG TABLET PO SCH (20:44)
[2018-01-01] MEDS: CARVEDILOL 25 MG TABLET PO SCH (20:44)
[2018-01-01] MEDS ORDERED: CARVEDILOL 25 MG TABLET PO SCH (21:00)
[2018-01-01] MEDS ORDERED: LOSARTAN 25 MG TABLET PO SCH (21:00)
[2018-01-02] MEDS: INSULIN LISPRO 100 UNIT/ML SUBCUT SCH ×4 (00:37→18:27)
[2018-01-02] MEDS ORDERED: AMIODARONE INJ 450 MG in DEXTROSE 5% 241 ML IV SCH (02:00)
[2018-01-02] MEDS: ALBUMIN 25% 12.5 GM in PREMIX 1 EACH IV SCH ×3 (02:04→18:23)
[2018-01-02] MEDS: VANCOMYCIN 50 MG/ML 60 ML/BOTTLE PER TUBE SCH ×4 (04:30→21:01)
[2018-01-02 04:36] LABS: ABG Base Excess -1.9 MMOL/L (-2.5-2.5); ABG HCO3 22.8 MMOL/L (20-26); ABG Oxygen Saturation 96.8 % (95-100); ABG PCO2 61.6 MM HG (35-48); ABG PH 7.238 (7.35-7.45); ABG PO2 97.9 MM HG (80-95); ABG TCO2 24.9 MMOL/L (23-27)
[2018-01-02 05:19] LABS: Basophils % 0.1 % (0.0-0.8); Eosinophils % 0.1 % (0.00-10.9); Hematocrit 21.2 VOL% (42.0-52.0); Hemoglobin 6.8 GM/DL (14.0-18.0); Immature Granulocytes % 1.9 %; Immature Granulocytes Absolute 0.32 #; Lymphocytes # 0.6 10*3/uL (1.4-4.0); Lymphocytes % 3.7 % (21.2-54.2); Mean Corpuscular HGB Conc 32.1 GM/DL (32-36); Mean Corpuscular Hemoglobin 30 PG (27-34); Mean Corpuscular Volume 92.2 FL (87-102); Mean Platelet Volume 11.1 FL (9.6-12.0); Monocytes # 1.3 10*3/uL (0.11-0.8); Monocytes % 7.7 % (1.7-12.7); NRBC # 0.03 10*3/uL; Neutrophils # 14.7 10*3/uL (1.4-7.4); Neutrophils % 86.5 % (38.7-73.9); Red Cell Distribution Width 16.9 % (9.3-17.3)
[2018-01-02 05:21] LABS: Platelet Count 73 T/CUMM (130-400)
[2018-01-02 05:41] LABS: Band Neutrophils 2 % (0-10); Hypochromasia 1+; Lymphocytes 4 % (20-55); Microcytosis Slight; Platelet Estimate Decreased; Segmented Neutrophils 85 % (50-85); Total Cells Counted 100
[2018-01-02 05:53] LABS: Albumin 2.2 G/DL (3.4-5.0); Bilirubin,Total 1.8 MG/DL (0.2-1.0); Calcium 7.1 MG/DL (8.5-10.1); Potassium 4.6 MMOL/L (3.5-5.1)
[2018-01-02] MEDS: PIPERACILLIN/TAZOBACTAM 3,375 MG in SODIUM CHLORIDE 0.9% 100 ML IV SCH ×2 (06:17→20:15)
[2018-01-02] MEDS: CARVEDILOL 25 MG TABLET PO SCH ×2 (08:40→20:15)
[2018-01-02] MEDS: OMEGA 3 ACID ETHYL ESTERS 1 GM CAPSULE PO SCH ×2 (08:41→20:15)
[2018-01-02] MEDS: LOSARTAN 25 MG TABLET PO SCH ×2 (08:41→20:15)
[2018-01-02] MEDS: FAMOTIDINE 20 MG TABLET PO SCH (08:41)
[2018-01-02] MEDS: amLODIPine 10 MG TABLET PO SCH (08:41)
[2018-01-02] MEDS: FENOFIBRATE 145 MG TABLET PO SCH (08:41)
[2018-01-02] MEDS: HYDROCORTISONE 100 MG VIAL IV SCH ×2 (08:42→20:15)
[2018-01-02] MEDS ORDERED: SODIUM CHLORIDE 0.9% 250 ML IV PRN (14:38)
[2018-01-02] MEDS ORDERED: SODIUM CHLORIDE 0.9% 500 ML IV PRN (14:42)
[2018-01-02] MEDS: DEXMEDETOMIDINE 200 MCG in SODIUM CHLORIDE 0.9% 48 ML IV PRN ×3 (15:12→21:46)
[2018-01-02] MEDS ORDERED: SODIUM CHLORIDE 0.9% 1,000 ML IV ONE (15:40)
[2018-01-02 15:43] LABS: ABG HCO3 23.6 MMOL/L (20-26); ABG PCO2 68.5 MM HG (35-48); ABG PH 7.212 (7.35-7.45); ABG TCO2 26.6 MMOL/L (23-27); Allen Test Positive; Pt O2 Delivery Device Ventilator
[2018-01-02] MEDS: ATORVASTATIN 80 MG TABLET PO SCH (20:15)
[2018-01-03] MEDS: INSULIN LISPRO 100 UNIT/ML SUBCUT SCH ×4 (00:48→17:38)
[2018-01-03] MEDS: DEXMEDETOMIDINE 200 MCG in SODIUM CHLORIDE 0.9% 48 ML IV PRN ×3 (01:15→09:18)
[2018-01-03] MEDS: ALBUMIN 25% 12.5 GM in PREMIX 1 EACH IV SCH ×3 (03:02→17:38)
[2018-01-03] MEDS: VANCOMYCIN 50 MG/ML 60 ML/BOTTLE PER TUBE SCH ×4 (03:02→22:35)
[2018-01-03 05:11] LABS: Basophils % 0.1 % (0.0-0.8); Eosinophils # 0.1 10*3/uL (0.0-0.87); Eosinophils % 0.5 % (0.00-10.9); Hematocrit 23.2 VOL% (42.0-52.0); Hemoglobin 7.8 GM/DL (14.0-18.0); Immature Granulocytes % 1.2 %; Immature Granulocytes Absolute 0.17 #; Lymphocytes # 0.5 10*3/uL (1.4-4.0); Lymphocytes % 3.7 % (21.2-54.2); Mean Corpuscular HGB Conc 33.6 GM/DL (32-36); Mean Corpuscular Hemoglobin 30 PG (27-34); Mean Corpuscular Volume 89.9 FL (87-102); Mean Platelet Volume 11.7 FL (9.6-12.0); Monocytes # 0.8 10*3/uL (0.11-0.8); Monocytes % 5.7 % (1.7-12.7); NRBC # 0.03 10*3/uL; Neutrophils # 12.8 10*3/uL (1.4-7.4); Neutrophils % 88.8 % (38.7-73.9); Platelet Count 76 T/CUMM (130-400); Red Blood Count 2.58 MC/CUMM (3.8-5.5); Red Cell Distribution Width 17.2 % (9.3-17.3); White Blood Count 14.5 T/CUMM (4-12)
[2018-01-03 05:35] LABS: Band Neutrophils 1 % (0-10); Eosinophils 1 % (0-10); Giant Platelets Few; Hypochromasia 1+; Lymphocytes 1 % (20-55); Microcytosis Slight; Platelet Estimate Decreased; Segmented Neutrophils 90 % (50-85); Total Cells Counted 100
[2018-01-03 05:37] LABS: Albumin 2.2 G/DL (3.4-5.0); Bilirubin,Total 1.9 MG/DL (0.2-1.0); Calcium 7.7 MG/DL (8.5-10.1); Osmolality,Calculated 307.7 MOS/KG (273-304); Potassium 4.3 MMOL/L (3.5-5.1)
[2018-01-03] MEDS: FENOFIBRATE 145 MG TABLET PO SCH (08:54)
[2018-01-03] MEDS: HYDROCORTISONE 100 MG VIAL IV SCH (08:54)
[2018-01-03] MEDS: PIPERACILLIN/TAZOBACTAM 3,375 MG in SODIUM CHLORIDE 0.9% 100 ML IV SCH ×2 (08:54→22:00)
[2018-01-03] MEDS: FAMOTIDINE 20 MG TABLET PO SCH (08:54)
[2018-01-03] MEDS: LOSARTAN 25 MG TABLET PO SCH (08:55)
[2018-01-03] MEDS: amLODIPine 10 MG TABLET PO SCH (08:55)
[2018-01-03] MEDS: OMEGA 3 ACID ETHYL ESTERS 1 GM CAPSULE PO SCH (09:00)
[2018-01-03] MEDS: CARVEDILOL 25 MG TABLET PO SCH ×2 (10:41→22:35)
[2018-01-03] MEDS: DEXMEDETOMIDINE 400 MCG in SODIUM CHLORIDE 0.9% 96 ML IV PRN ×4 (10:46→21:36)
[2018-01-03] MEDS: MORPHINE 4 MG/1 ML VIAL IV PRN (14:01)
[2018-01-03] MEDS: LEVOFLOXACIN INJ 250 MG in PREMIX 1 EACH IV SCH (16:51)
[2018-01-03] MEDS: ATORVASTATIN 80 MG TABLET PO SCH (22:35)
[2018-01-04] MEDS: DEXMEDETOMIDINE 400 MCG in SODIUM CHLORIDE 0.9% 96 ML IV PRN ×7 (00:54→20:39)
[2018-01-04] MEDS: HYDROCORTISONE 100 MG VIAL IV SCH ×3 (02:34→21:15)
[2018-01-04] MEDS: INSULIN LISPRO 100 UNIT/ML SUBCUT SCH ×4 (02:35→18:20)
[2018-01-04] MEDS: OMEGA 3 ACID ETHYL ESTERS 1 GM CAPSULE PO SCH ×3 (02:35→21:15)
[2018-01-04] MEDS: ALBUMIN 25% 12.5 GM in PREMIX 1 EACH IV SCH ×3 (02:36→18:21)
[2018-01-04] MEDS: VANCOMYCIN 50 MG/ML 60 ML/BOTTLE PER TUBE SCH ×4 (03:47→21:15)
[2018-01-04 04:07] LABS: ABG HCO3 23.6 MMOL/L (20-26); ABG Oxygen Saturation 99.9 % (95-100); ABG PCO2 49.1 MM HG (35-48); ABG PH 7.321 (7.35-7.45); ABG TCO2 23.8 MMOL/L (23-27); Allen Test Positive; Pt O2 Delivery Device Ventilator
[2018-01-04 04:35] LABS: Basophils % 0.1 % (0.0-0.8); Eosinophils # 0.1 10*3/uL (0.0-0.87); Eosinophils % 0.4 % (0.00-10.9); Hemoglobin 8.1 GM/DL (14.0-18.0); Immature Granulocytes Absolute 0.19 #; Lymphocytes # 0.5 10*3/uL (1.4-4.0); Lymphocytes % 2.9 % (21.2-54.2); Mean Corpuscular HGB Conc 33.8 GM/DL (32-36); Mean Corpuscular Hemoglobin 30 PG (27-34); Mean Corpuscular Volume 87.9 FL (87-102); Mean Platelet Volume 11.3 FL (9.6-12.0); Monocytes % 5.4 % (1.7-12.7); NRBC # 0.02 10*3/uL; Neutrophils # 16.5 10*3/uL (1.4-7.4); Neutrophils % 90.2 % (38.7-73.9); Red Blood Count 2.73 MC/CUMM (3.8-5.5); Red Cell Distribution Width 17.6 % (9.3-17.3); White Blood Count 18.3 T/CUMM (4-12)
[2018-01-04 04:40] LABS: Platelet Count 98 T/CUMM (130-400)
[2018-01-04 05:02] LABS: Albumin 2.2 G/DL (3.4-5.0); Bilirubin,Total 1.6 MG/DL (0.2-1.0); Calcium 8.3 MG/DL (8.5-10.1); Osmolality,Calculated 314.8 MOS/KG (273-304); Potassium 4.4 MMOL/L (3.5-5.1); Total Protein 6.3 G/DL (6.4-8.3)
[2018-01-04 05:21] LABS: Band Neutrophils 1 % (0-10); Hypochromasia 1+; Lymphocytes 2 % (20-55); Segmented Neutrophils 89 % (50-85); Total Cells Counted 100
[2018-01-04 05:22] LABS: Microcytosis 1+; Polychromasia Slight
[2018-01-04 05:23] LABS: Anisocytosis 1+; Platelet Estimate Decreased
[2018-01-04] MEDS ORDERED: MIDAZOLAM 10 MG/2 ML VIAL ONE (07:24)
[2018-01-04] MEDS: CARVEDILOL 25 MG TABLET PO SCH ×2 (09:17→21:15)
[2018-01-04] MEDS: FAMOTIDINE 20 MG TABLET PO SCH (09:17)
[2018-01-04] MEDS: FENOFIBRATE 145 MG TABLET PO SCH (09:17)
[2018-01-04] MEDS: PIPERACILLIN/TAZOBACTAM 3,375 MG in SODIUM CHLORIDE 0.9% 100 ML IV SCH ×2 (09:18→21:05)
[2018-01-04] MEDS: amLODIPine 10 MG TABLET PO SCH (09:18)
[2018-01-04] MEDS: LORazepam 2 MG/1 ML VIAL IV PRN ×3 (10:00→20:27)
[2018-01-04] MEDS: MORPHINE 4 MG/1 ML VIAL IV PRN ×3 (12:48→21:00)
[2018-01-04] MEDS: ATORVASTATIN 80 MG TABLET PO SCH (21:15)
[2018-01-04] MEDS: ZINC OXIDE PASTE 113 GM TUBE TOP SCH (22:00)
[2018-01-04] MEDS ORDERED: VECURONIUM 10 MG VIAL IV ONE ×2 (22:37→22:45)
[2018-01-04] MEDS: VECURONIUM 100 MG in SODIUM CHLORIDE 0.9% 100 ML IV SCH (23:15)
[2018-01-05] MEDS: ALBUMIN 25% 12.5 GM in PREMIX 1 EACH IV SCH ×3 (02:37→18:24)
[2018-01-05 03:54] LABS: ABG Base Excess -1.9 MMOL/L (-2.5-2.5); ABG HCO3 24.5 MMOL/L (20-26); ABG Oxygen Saturation 94.4 % (95-100); ABG PCO2 50.2 MM HG (35-48); ABG PH 7.307 (7.35-7.45); ABG PO2 85.3 MM HG (80-95); ABG TCO2 26.1 MMOL/L (23-27); Allen Test Positive; Pt O2 Delivery Device Ventilator
[2018-01-05] MEDS: DEXMEDETOMIDINE 400 MCG in SODIUM CHLORIDE 0.9% 96 ML IV PRN ×6 (04:00→23:39)
[2018-01-05] MEDS: MORPHINE 4 MG/1 ML VIAL IV PRN (04:20)
[2018-01-05 05:20] LABS: Basophils % 0.1 % (0.0-0.8); Eosinophils # 0.1 10*3/uL (0.0-0.87); Eosinophils % 0.3 % (0.00-10.9); Hematocrit 22.5 VOL% (42.0-52.0); Hemoglobin 7.5 GM/DL (14.0-18.0); Immature Granulocytes % 2.6 %; Immature Granulocytes Absolute 0.54 #; Lymphocytes # 0.5 10*3/uL (1.4-4.0); Lymphocytes % 2.2 % (21.2-54.2); Mean Corpuscular HGB Conc 33.3 GM/DL (32-36); Mean Corpuscular Hemoglobin 30 PG (27-34); Mean Corpuscular Volume 89.6 FL (87-102); Mean Platelet Volume 10.9 FL (9.6-12.0); Monocytes # 1.2 10*3/uL (0.11-0.8); Monocytes % 5.9 % (1.7-12.7); NRBC # 0.06 10*3/uL; Neutrophils # 18.7 10*3/uL (1.4-7.4); Neutrophils % 88.9 % (38.7-73.9); Platelet Count 109 T/CUMM (130-400); Red Blood Count 2.51 MC/CUMM (3.8-5.5); Red Cell Distribution Width 17.5 % (9.3-17.3)
[2018-01-05] MEDS: VANCOMYCIN 50 MG/ML 60 ML/BOTTLE PER TUBE SCH ×5 (05:38→21:06)
[2018-01-05] MEDS: INSULIN LISPRO 100 UNIT/ML SUBCUT SCH ×4 (05:38→18:24)
[2018-01-05 05:40] LABS: Lymphocytes 2 % (20-55); Microcytosis 1+; Ovalocytes Slight; Segmented Neutrophils 95 % (50-85); Total Cells Counted 100
[2018-01-05 05:41] LABS: Hypochromasia Slight; Platelet Estimate Adequate; Polychromasia Slight
[2018-01-05 05:42] LABS: Albumin 2.3 G/DL (3.4-5.0); Bilirubin,Total 1.8 MG/DL (0.2-1.0); Calcium 8.3 MG/DL (8.5-10.1); Osmolality,Calculated 308.7 MOS/KG (273-304); Potassium 4.5 MMOL/L (3.5-5.1); Total Protein 6.5 G/DL (6.4-8.3)
[2018-01-05] MEDS: PIPERACILLIN/TAZOBACTAM 3,375 MG in SODIUM CHLORIDE 0.9% 100 ML IV SCH ×2 (08:27→20:34)
[2018-01-05] MEDS: ZINC OXIDE PASTE 113 GM TUBE TOP SCH ×2 (09:53→20:34)
[2018-01-05] MEDS: HYDROCORTISONE 100 MG VIAL IV SCH ×2 (09:53→20:34)
[2018-01-05] MEDS ORDERED: LIDOCAINE 1%/EPI INJ 20 ML VIAL ONE (12:30)
[2018-01-05] MEDS: CARVEDILOL 25 MG TABLET PO SCH ×2 (16:38→20:34)
[2018-01-05] MEDS: amLODIPine 10 MG TABLET PO SCH (16:39)
[2018-01-05] MEDS: FAMOTIDINE 20 MG TABLET PO SCH (16:54)
[2018-01-05] MEDS: FENOFIBRATE 145 MG TABLET PO SCH (16:55)
[2018-01-05] MEDS: OMEGA 3 ACID ETHYL ESTERS 1 GM CAPSULE PO SCH ×2 (16:55→20:34)
[2018-01-05] MEDS: LEVOFLOXACIN INJ 250 MG in PREMIX 1 EACH IV SCH (16:57)
[2018-01-05] MEDS: ATORVASTATIN 80 MG TABLET PO SCH (20:34)
[2018-01-05] MEDS: VECURONIUM 100 MG in SODIUM CHLORIDE 0.9% 100 ML IV SCH (22:14)
[2018-01-06] MEDS: INSULIN LISPRO 100 UNIT/ML SUBCUT SCH ×4 (00:22→19:22)
[2018-01-06] MEDS: VANCOMYCIN 50 MG/ML 60 ML/BOTTLE PER TUBE SCH ×3 (02:55→20:53)
[2018-01-06] MEDS: ALBUMIN 25% 12.5 GM in PREMIX 1 EACH IV SCH ×3 (03:01→19:23)
[2018-01-06] MEDS: METOPROLOL TARTRATE 5 MG/5 ML VIAL IV PRN (03:01)
[2018-01-06] MEDS: DEXMEDETOMIDINE 400 MCG in SODIUM CHLORIDE 0.9% 96 ML IV PRN ×4 (04:46→22:10)
[2018-01-06 06:09] LABS: Albumin 2.2 G/DL (3.4-5.0); Bilirubin,Total 1.3 MG/DL (0.2-1.0); Calcium 8.6 MG/DL (8.5-10.1); Osmolality,Calculated 317.8 MOS/KG (273-304); Potassium 5.1 MMOL/L (3.5-5.1); Total Protein 6.5 G/DL (6.4-8.3)
[2018-01-06] MEDS: FAMOTIDINE 20 MG/2 ML VIAL IV SCH ×2 (08:33→20:52)
[2018-01-06] MEDS: FENOFIBRATE 145 MG TABLET PO SCH (08:34)
[2018-01-06] MEDS: OMEGA 3 ACID ETHYL ESTERS 1 GM CAPSULE PO SCH ×2 (08:34→20:53)
[2018-01-06] MEDS: HYDROCORTISONE 100 MG VIAL IV SCH ×2 (08:34→20:53)
[2018-01-06] MEDS ORDERED: AMIODARONE INJ 150 MG in DEXTROSE 5% 100 ML IV ONE (09:19)
[2018-01-06] MEDS ORDERED: SODIUM CHLORIDE 0.9% 1,000 ML IV PRN (09:22)
[2018-01-06] MEDS: AMIODARONE INJ 450 MG in DEXTROSE 5% 241 ML IV SCH (10:17)
[2018-01-06] MEDS: PIPERACILLIN/TAZOBACTAM 3,375 MG in SODIUM CHLORIDE 0.9% 100 ML IV SCH ×2 (12:46→20:52)
[2018-01-06] MEDS: amLODIPine 10 MG TABLET PO SCH (12:47)
[2018-01-06] MEDS: CARVEDILOL 25 MG TABLET PO SCH ×2 (12:47→20:52)
[2018-01-06] MEDS: ZINC OXIDE PASTE 113 GM TUBE TOP SCH ×2 (12:48→20:53)
[2018-01-06] MEDS: ALBUMIN 25% 25 GM in PREMIX 1 EACH IV PRN (12:50)
[2018-01-06 15:50] LABS: ABG Base Excess -2.4 MMOL/L (-2.5-2.5); ABG HCO3 22.4 MMOL/L (20-26); ABG Oxygen Saturation 98.7 % (95-100); ABG PCO2 44.3 MM HG (35-48); ABG PH 7.332 (7.35-7.45); ABG TCO2 21.9 MMOL/L (23-27)
[2018-01-06] MEDS: LORazepam 2 MG/1 ML VIAL IV PRN (20:27)
[2018-01-06] MEDS: ATORVASTATIN 80 MG TABLET PO SCH (20:53)
[2018-01-07] MEDS: AMIODARONE INJ 450 MG in DEXTROSE 5% 241 ML IV SCH ×2 (00:20→18:04)
[2018-01-07] MEDS: INSULIN LISPRO 100 UNIT/ML SUBCUT SCH ×4 (00:20→17:38)
[2018-01-07] MEDS: DEXMEDETOMIDINE 400 MCG in SODIUM CHLORIDE 0.9% 96 ML IV PRN ×2 (01:59→09:41)
[2018-01-07] MEDS: ALBUMIN 25% 12.5 GM in PREMIX 1 EACH IV SCH ×3 (03:05→17:39)
[2018-01-07 03:27] LABS: Basophils % 0.1 % (0.0-0.8); Hematocrit 21.9 VOL% (42.0-52.0); Hemoglobin 7.2 GM/DL (14.0-18.0); Immature Granulocytes % 1.1 %; Immature Granulocytes Absolute 0.15 #; Lymphocytes # 0.5 10*3/uL (1.4-4.0); Lymphocytes % 3.3 % (21.2-54.2); Mean Corpuscular HGB Conc 32.9 GM/DL (32-36); Mean Corpuscular Hemoglobin 30 PG (27-34); Mean Corpuscular Volume 90.5 FL (87-102); Mean Platelet Volume 11.2 FL (9.6-12.0); Monocytes # 1.4 10*3/uL (0.11-0.8); Monocytes % 10.1 % (1.7-12.7); NRBC # 0.02 10*3/uL; Neutrophils % 85.4 % (38.7-73.9); Platelet Count 152 T/CUMM (130-400); Red Blood Count 2.42 MC/CUMM (3.8-5.5); Red Cell Distribution Width 16.7 % (9.3-17.3)
[2018-01-07 04:12] LABS: Potassium 4.5 MMOL/L (3.5-5.1)
[2018-01-07 04:14] LABS: Calcium 8.2 MG/DL (8.5-10.1)
[2018-01-07 04:15] LABS: Osmolality,Calculated 310.1 MOS/KG (273-304)
[2018-01-07 04:17] LABS: ABG Base Excess -1.6 MMOL/L (-2.5-2.5); ABG Oxygen Saturation 98.5 % (95-100); ABG PCO2 44.5 MM HG (35-48); ABG PO2 170.9 MM HG (80-95); ABG TCO2 25.4 MMOL/L (23-27); Allen Test Positive; Pt O2 Delivery Device Ventilator
[2018-01-07 05:26] LABS: Lymphocytes 3 % (20-55); Platelet Estimate Normal; Segmented Neutrophils 91 % (50-85); Total Cells Counted 100
[2018-01-07] MEDS: FAMOTIDINE 20 MG/2 ML VIAL IV SCH ×2 (07:52→20:54)
[2018-01-07] MEDS: LORazepam 2 MG/1 ML VIAL IV PRN ×3 (07:53→22:19)
[2018-01-07] MEDS: PIPERACILLIN/TAZOBACTAM 3,375 MG in SODIUM CHLORIDE 0.9% 100 ML IV SCH ×2 (07:54→20:54)
[2018-01-07] MEDS: HYDROCORTISONE 100 MG VIAL IV SCH ×2 (08:08→20:55)
[2018-01-07] MEDS: OMEGA 3 ACID ETHYL ESTERS 1 GM CAPSULE PO SCH ×2 (08:09→20:55)
[2018-01-07] MEDS: amLODIPine 10 MG TABLET PO SCH (08:09)
[2018-01-07] MEDS: CARVEDILOL 25 MG TABLET PO SCH ×2 (08:09→20:54)
[2018-01-07] MEDS: FENOFIBRATE 145 MG TABLET PO SCH (08:09)
[2018-01-07] MEDS: VANCOMYCIN 50 MG/ML 60 ML/BOTTLE PER TUBE SCH ×2 (08:28→20:55)
[2018-01-07] MEDS: ZINC OXIDE PASTE 113 GM TUBE TOP SCH ×2 (08:28→20:55)
[2018-01-07] MEDS: ALBUMIN 25% 25 GM in PREMIX 1 EACH IV PRN ×2 (09:43→09:44)
[2018-01-07] MEDS: fentaNYL INJ 1,250 MCG in SODIUM CHLORIDE 0.9% 225 ML IV PRN (14:27)
[2018-01-07] MEDS: LEVOFLOXACIN INJ 250 MG in PREMIX 1 EACH IV SCH (17:37)
[2018-01-07] MEDS: ATORVASTATIN 80 MG TABLET PO SCH (20:55)
[2018-01-08] MEDS: INSULIN LISPRO 100 UNIT/ML SUBCUT SCH ×4 (00:30→19:30)
[2018-01-08] MEDS: fentaNYL INJ 1,250 MCG in SODIUM CHLORIDE 0.9% 225 ML IV PRN ×2 (02:13→13:09)
[2018-01-08] MEDS: ALBUMIN 25% 12.5 GM in PREMIX 1 EACH IV SCH (03:18)
[2018-01-08 04:28] LABS: ABG Base Excess -3.2 MMOL/L (-2.5-2.5); ABG HCO3 23.3 MMOL/L (20-26); ABG Oxygen Saturation 96.5 % (95-100); ABG PCO2 49.9 MM HG (35-48); ABG PH 7.287 (7.35-7.45); ABG PO2 100.9 MM HG (80-95); ABG TCO2 24.8 MMOL/L (23-27); Pt O2 Delivery Device Ventilator
[2018-01-08 05:33] LABS: Basophils % 0.2 % (0.0-0.8); Eosinophils # 0.1 10*3/uL (0.0-0.87); Eosinophils % 0.4 % (0.00-10.9); Hematocrit 20.8 VOL% (42.0-52.0); Hemoglobin 6.6 GM/DL (14.0-18.0); Immature Granulocytes % 0.9 %; Lymphocytes # 0.6 10*3/uL (1.4-4.0); Lymphocytes % 5.2 % (21.2-54.2); Mean Corpuscular HGB Conc 31.7 GM/DL (32-36); Mean Corpuscular Hemoglobin 29 PG (27-34); Mean Corpuscular Volume 92.4 FL (87-102); Mean Platelet Volume 11.2 FL (9.6-12.0); Monocytes # 1.3 10*3/uL (0.11-0.8); Monocytes % 11.6 % (1.7-12.7); Neutrophils # 9.3 10*3/uL (1.4-7.4); Neutrophils % 81.7 % (38.7-73.9); Platelet Count 183 T/CUMM (130-400); Red Blood Count 2.25 MC/CUMM (3.8-5.5); Red Cell Distribution Width 16.9 % (9.3-17.3); White Blood Count 11.4 T/CUMM (4-12)
[2018-01-08] MEDS: AMIODARONE INJ 450 MG in DEXTROSE 5% 241 ML IV SCH ×3 (05:38→22:05)
[2018-01-08 05:50] LABS: Calcium 8.5 MG/DL (8.5-10.1); Osmolality,Calculated 315.8 MOS/KG (273-304); Potassium 4.4 MMOL/L (3.5-5.1)
[2018-01-08 05:55] LABS: Prealbumin 8.8 MG/DL (20-40)
[2018-01-08 07:27] LABS: Albumin 2.5 G/DL (3.4-5.0); Bilirubin,Total 0.9 MG/DL (0.2-1.0); Calcium 8.6 MG/DL (8.5-10.1); Potassium 4.4 MMOL/L (3.5-5.1); Total Protein 6.7 G/DL (6.4-8.3)
[2018-01-08] MEDS: HYDROCORTISONE 100 MG VIAL IV SCH ×2 (09:50→21:04)
[2018-01-08] MEDS: OMEGA 3 ACID ETHYL ESTERS 1 GM CAPSULE PO SCH ×2 (09:50→21:04)
[2018-01-08] MEDS: VANCOMYCIN 50 MG/ML 60 ML/BOTTLE PER TUBE SCH ×2 (09:50→21:04)
[2018-01-08] MEDS: FENOFIBRATE 145 MG TABLET PO SCH (09:50)
[2018-01-08] MEDS: CARVEDILOL 25 MG TABLET PO SCH ×2 (09:51→21:03)
[2018-01-08] MEDS: amLODIPine 10 MG TABLET PO SCH (09:51)
[2018-01-08] MEDS: FAMOTIDINE 20 MG/2 ML VIAL IV SCH ×2 (09:51→21:03)
[2018-01-08] MEDS: ZINC OXIDE PASTE 113 GM TUBE TOP SCH ×2 (09:51→21:03)
[2018-01-08] MEDS: ATORVASTATIN 80 MG TABLET PO SCH (21:04)
[2018-01-09] MEDS: AMIODARONE INJ 450 MG in DEXTROSE 5% 241 ML IV SCH ×2 (01:55→17:20)
[2018-01-09] MEDS: fentaNYL INJ 1,250 MCG in SODIUM CHLORIDE 0.9% 225 ML IV PRN ×2 (01:55→15:15)
[2018-01-09 02:39] LABS: ABG Base Excess -2.3 MMOL/L (-2.5-2.5); ABG HCO3 22.5 MMOL/L (20-26); ABG PCO2 52.4 MM HG (35-48); ABG PH 7.284 (7.35-7.45); Allen Test Positive; Pt O2 Delivery Device Ventilator
[2018-01-09 06:16] LABS: Basophils % 0.2 % (0.0-0.8); Eosinophils % 0.4 % (0.00-10.9); Hematocrit 23.9 VOL% (42.0-52.0); Hemoglobin 7.8 GM/DL (14.0-18.0); Immature Granulocytes % 0.5 %; Immature Granulocytes Absolute 0.06 #; Lymphocytes # 0.5 10*3/uL (1.4-4.0); Lymphocytes % 4.5 % (21.2-54.2); Mean Corpuscular HGB Conc 32.6 GM/DL (32-36); Mean Corpuscular Hemoglobin 29 PG (27-34); Mean Corpuscular Volume 90.2 FL (87-102); Mean Platelet Volume 11.3 FL (9.6-12.0); Monocytes # 1.3 10*3/uL (0.11-0.8); Monocytes % 11.4 % (1.7-12.7); Neutrophils # 9.1 10*3/uL (1.4-7.4); Platelet Count 197 T/CUMM (130-400); Red Blood Count 2.65 MC/CUMM (3.8-5.5); Red Cell Distribution Width 16.3 % (9.3-17.3)
[2018-01-09] MEDS: INSULIN LISPRO 100 UNIT/ML SUBCUT SCH ×5 (06:17→23:43)
[2018-01-09 06:44] LABS: Calcium 8.5 MG/DL (8.5-10.1); Osmolality,Calculated 304.1 MOS/KG (273-304); Potassium 4.3 MMOL/L (3.5-5.1)
[2018-01-09 06:45] LABS: Lymphocytes 4 % (20-55); Segmented Neutrophils 91 % (50-85); Total Cells Counted 100
[2018-01-09 06:46] LABS: Hypochromasia 1+; Platelet Estimate Adequate
[2018-01-09] MEDS: amLODIPine 10 MG TABLET PO SCH (08:47)
[2018-01-09] MEDS: FENOFIBRATE 145 MG TABLET PO SCH (08:47)
[2018-01-09] MEDS: CARVEDILOL 25 MG TABLET PO SCH ×2 (08:47→22:25)
[2018-01-09] MEDS: OMEGA 3 ACID ETHYL ESTERS 1 GM CAPSULE PO SCH ×2 (08:48→22:25)
[2018-01-09] MEDS: FAMOTIDINE 20 MG/2 ML VIAL IV SCH ×2 (08:48→22:30)
[2018-01-09] MEDS: ZINC OXIDE PASTE 113 GM TUBE TOP SCH ×2 (08:48→22:30)
[2018-01-09] MEDS: HYDROCORTISONE 100 MG VIAL IV SCH ×2 (08:48→22:30)
[2018-01-09] MEDS: VANCOMYCIN 50 MG/ML 60 ML/BOTTLE PER TUBE SCH ×2 (09:12→22:25)
[2018-01-09] MEDS: LEVOFLOXACIN INJ 250 MG in PREMIX 1 EACH IV SCH (17:22)
[2018-01-09] MEDS: ATORVASTATIN 80 MG TABLET PO SCH (22:25)
[2018-01-10] MEDS: fentaNYL INJ 1,250 MCG in SODIUM CHLORIDE 0.9% 225 ML IV PRN ×3 (02:54→20:42)
[2018-01-10] MEDS: AMIODARONE INJ 450 MG in DEXTROSE 5% 241 ML IV SCH ×2 (03:18→09:36)
[2018-01-10 03:29] LABS: Allen Test Positive; Pt O2 Delivery Device Ventilator
[2018-01-10 03:30] LABS: ABG Base Excess -1.6 MMOL/L (-2.5-2.5); ABG HCO3 23.7 MMOL/L (20-26); ABG Oxygen Saturation 98.8 % (95-100); ABG PCO2 42.3 MM HG (35-48); ABG PH 7.366 (7.35-7.45); ABG PO2 173.7 MM HG (80-95)
[2018-01-10 05:38] LABS: Calcium 8.3 MG/DL (8.5-10.1); Osmolality,Calculated 311.5 MOS/KG (273-304); Potassium 4.5 MMOL/L (3.5-5.1)
[2018-01-10] MEDS: INSULIN LISPRO 100 UNIT/ML SUBCUT SCH ×3 (05:51→18:15)
[2018-01-10] MEDS: FAMOTIDINE 20 MG/2 ML VIAL IV SCH ×2 (09:33→21:19)
[2018-01-10] MEDS: FENOFIBRATE 145 MG TABLET PO SCH (09:33)
[2018-01-10] MEDS: CARVEDILOL 25 MG TABLET PO SCH ×2 (09:33→21:18)
[2018-01-10] MEDS: OMEGA 3 ACID ETHYL ESTERS 1 GM CAPSULE PO SCH ×2 (09:33→21:19)
[2018-01-10] MEDS: amLODIPine 10 MG TABLET PO SCH (09:33)
[2018-01-10] MEDS: HYDROCORTISONE 100 MG VIAL IV SCH ×2 (09:34→21:20)
[2018-01-10] MEDS: ZINC OXIDE PASTE 113 GM TUBE TOP SCH (09:34)
[2018-01-10] MEDS: VANCOMYCIN 50 MG/ML 60 ML/BOTTLE PER TUBE SCH ×2 (09:35→21:19)
[2018-01-10] MEDS: ATORVASTATIN 80 MG TABLET PO SCH (21:18)
[2018-01-11] MEDS: ZINC OXIDE PASTE 113 GM TUBE TOP SCH ×2 (00:32→08:46)
[2018-01-11] MEDS: INSULIN LISPRO 100 UNIT/ML SUBCUT SCH ×4 (00:55→18:27)
[2018-01-11] MEDS: AMIODARONE INJ 450 MG in DEXTROSE 5% 241 ML IV SCH ×2 (00:56→16:24)
[2018-01-11 04:08] LABS: ABG Base Excess 1.2 MMOL/L (-2.5-2.5); ABG HCO3 27.4 MMOL/L (20-26); ABG Oxygen Saturation 97.3 % (95-100); ABG PCO2 52.5 MM HG (35-48); ABG PH 7.336 (7.35-7.45); ABG PO2 110.2 MM HG (80-95); Allen Test Positive; Pt O2 Delivery Device Ventilator
[2018-01-11 04:39] LABS: Basophils % 0.2 % (0.0-0.8); Eosinophils # 0.1 10*3/uL (0.0-0.87); Eosinophils % 0.4 % (0.00-10.9); Hematocrit 23.2 VOL% (42.0-52.0); Hemoglobin 7.3 GM/DL (14.0-18.0); Immature Granulocytes % 0.6 %; Immature Granulocytes Absolute 0.08 #; Lymphocytes # 0.4 10*3/uL (1.4-4.0); Lymphocytes % 3.4 % (21.2-54.2); Mean Corpuscular HGB Conc 31.5 GM/DL (32-36); Mean Corpuscular Hemoglobin 30 PG (27-34); Mean Corpuscular Volume 93.9 FL (87-102); Mean Platelet Volume 11.1 FL (9.6-12.0); Monocytes # 1.1 10*3/uL (0.11-0.8); Monocytes % 8.7 % (1.7-12.7); Neutrophils % 86.7 % (38.7-73.9); Platelet Count 278 T/CUMM (130-400); Red Blood Count 2.47 MC/CUMM (3.8-5.5); Red Cell Distribution Width 15.9 % (9.3-17.3); White Blood Count 12.7 T/CUMM (4-12)
[2018-01-11 04:49] LABS: Calcium 8.4 MG/DL (8.5-10.1); Osmolality,Calculated 305.7 MOS/KG (273-304); Potassium 4.1 MMOL/L (3.5-5.1); Prealbumin 7.2 MG/DL (20-40)
[2018-01-11 05:19] LABS: Hypochromasia 1+; Lymphocytes 4 % (20-55); Nucleated Red Blood Cells 1 (0-5); Ovalocytes Slight; Platelet Estimate Adequate; Segmented Neutrophils 82 % (50-85); Total Cells Counted 100
[2018-01-11] MEDS: HYDROCORTISONE 100 MG VIAL IV SCH ×2 (08:45→20:54)
[2018-01-11] MEDS: CARVEDILOL 25 MG TABLET PO SCH ×2 (08:45→20:51)
[2018-01-11] MEDS: OMEGA 3 ACID ETHYL ESTERS 1 GM CAPSULE PO SCH ×2 (08:45→20:48)
[2018-01-11] MEDS: FENOFIBRATE 145 MG TABLET PO SCH (08:45)
[2018-01-11] MEDS: amLODIPine 10 MG TABLET PO SCH (08:45)
[2018-01-11] MEDS: FAMOTIDINE 20 MG/2 ML VIAL IV SCH ×2 (08:46→20:51)
[2018-01-11] MEDS: VANCOMYCIN 50 MG/ML 60 ML/BOTTLE PER TUBE SCH (08:47)
[2018-01-11] MEDS: LORazepam 2 MG/1 ML VIAL IV PRN (16:33)
[2018-01-11] MEDS: MORPHINE 4 MG/1 ML VIAL IV PRN (18:28)
[2018-01-11] MEDS: METOPROLOL TARTRATE 5 MG/5 ML VIAL IV PRN (19:05)
[2018-01-11] MEDS: AMIODARONE 200 MG TABLET PO SCH (20:51)
[2018-01-11] MEDS: ATORVASTATIN 80 MG TABLET PO SCH (20:51)
[2018-01-12] MEDS: MORPHINE 4 MG/1 ML VIAL IV PRN ×2 (00:54→12:28)
[2018-01-12] MEDS: LORazepam 2 MG/1 ML VIAL IV PRN ×4 (00:57→20:19)
[2018-01-12] MEDS: INSULIN LISPRO 100 UNIT/ML SUBCUT SCH ×4 (01:00→18:20)
[2018-01-12] MEDS: ZINC OXIDE PASTE 113 GM TUBE TOP SCH ×2 (02:27→08:39)
[2018-01-12 04:36] LABS: Osmolality,Calculated 314.4 MOS/KG (273-304); Potassium 3.8 MMOL/L (3.5-5.1)
[2018-01-12 04:48] LABS: Allen Test Positive; Pt O2 Delivery Device Ventilator
[2018-01-12 04:49] LABS: ABG Base Excess 0.3 MMOL/L (-2.5-2.5); ABG Oxygen Saturation 98.2 % (95-100); ABG PCO2 40.7 MM HG (35-48); ABG PH 7.407 (7.35-7.45); ABG PO2 135.2 MM HG (80-95); ABG TCO2 26.3 MMOL/L (23-27)
[2018-01-12] MEDS: HYDROCORTISONE 100 MG VIAL IV SCH ×2 (08:38→20:22)
[2018-01-12] MEDS: amLODIPine 10 MG TABLET PO SCH (08:39)
[2018-01-12] MEDS: CARVEDILOL 25 MG TABLET PO SCH ×2 (08:39→20:20)
[2018-01-12] MEDS: AMIODARONE 200 MG TABLET PO SCH ×2 (08:39→20:20)
[2018-01-12] MEDS: FENOFIBRATE 145 MG TABLET PO SCH (08:39)
[2018-01-12] MEDS: FAMOTIDINE 20 MG/2 ML VIAL IV SCH ×2 (08:39→20:16)
[2018-01-12] MEDS: OMEGA 3 ACID ETHYL ESTERS 1 GM CAPSULE PO SCH ×2 (08:39→20:27)
[2018-01-12] MEDS ORDERED: AMIODARONE INJ 150 MG in DEXTROSE 5% 100 ML IV ONE (12:44)
[2018-01-12] MEDS ORDERED: AMIODARONE 200 MG TABLET PO ONE (12:45)
[2018-01-12] MEDS: ATORVASTATIN 80 MG TABLET PO SCH (20:20)
[2018-01-13] MEDS: INSULIN LISPRO 100 UNIT/ML SUBCUT SCH ×4 (01:30→18:12)
[2018-01-13] MEDS: LORazepam 2 MG/1 ML VIAL IV PRN ×3 (04:15→20:06)
[2018-01-13] MEDS: ZINC OXIDE PASTE 113 GM TUBE TOP SCH ×2 (04:28→09:56)
[2018-01-13] MEDS: amLODIPine 10 MG TABLET PO SCH (08:50)
[2018-01-13] MEDS: AMIODARONE 200 MG TABLET PO SCH ×2 (08:50→20:04)
[2018-01-13] MEDS: FENOFIBRATE 145 MG TABLET PO SCH (08:50)
[2018-01-13] MEDS: CARVEDILOL 25 MG TABLET PO SCH ×2 (08:51→20:05)
[2018-01-13] MEDS: FAMOTIDINE 20 MG/2 ML VIAL IV SCH ×2 (08:51→20:00)
[2018-01-13] MEDS: OMEGA 3 ACID ETHYL ESTERS 1 GM CAPSULE PO SCH ×2 (08:51→20:05)
[2018-01-13] MEDS: HYDROCORTISONE 100 MG VIAL IV SCH ×2 (08:51→20:03)
[2018-01-13] MEDS: ATORVASTATIN 80 MG TABLET PO SCH (20:05)
[2018-01-14] MEDS: INSULIN LISPRO 100 UNIT/ML SUBCUT SCH ×4 (00:12→18:02)
[2018-01-14] MEDS: LORazepam 2 MG/1 ML VIAL IV PRN ×3 (00:21→09:14)
[2018-01-14] MEDS: METOPROLOL TARTRATE 5 MG/5 ML VIAL IV PRN ×2 (00:21→05:39)
[2018-01-14 03:44] LABS: ABG Base Excess 1.4 MMOL/L (-2.5-2.5); ABG HCO3 25.6 MMOL/L (20-26); ABG Oxygen Saturation 98.6 % (95-100); ABG PH 7.435 (7.35-7.45); ABG TCO2 23.6 MMOL/L (23-27)
[2018-01-14] MEDS: ZINC OXIDE PASTE 113 GM TUBE TOP SCH ×2 (04:24→09:16)
[2018-01-14] MEDS: MORPHINE 4 MG/1 ML VIAL IV PRN (04:37)
[2018-01-14 05:53] LABS: Basophils % 0.2 % (0.0-0.8); Eosinophils # 0.2 10*3/uL (0.0-0.87); Eosinophils % 1.2 % (0.00-10.9); Hematocrit 28.7 VOL% (42.0-52.0); Immature Granulocytes % 0.8 %; Immature Granulocytes Absolute 0.13 #; Lymphocytes % 6.6 % (21.2-54.2); Mean Corpuscular HGB Conc 32.1 GM/DL (32-36); Mean Corpuscular Hemoglobin 29 PG (27-34); Mean Corpuscular Volume 91.1 FL (87-102); Mean Platelet Volume 10.7 FL (9.6-12.0); Monocytes # 1.2 10*3/uL (0.11-0.8); Neutrophils # 12.9 10*3/uL (1.4-7.4); Neutrophils % 83.2 % (38.7-73.9); Red Cell Distribution Width 15.1 % (9.3-17.3); White Blood Count 15.5 T/CUMM (4-12)
[2018-01-14 05:55] LABS: Calcium 8.6 MG/DL (8.5-10.1); Osmolality,Calculated 301.3 MOS/KG (273-304); Potassium 3.5 MMOL/L (3.5-5.1)
[2018-01-14 06:11] LABS: Hemoglobin 9.2 GM/DL (14.0-18.0); Red Blood Count 3.15 MC/CUMM (3.8-5.5)
[2018-01-14 06:12] LABS: Platelet Count 396 T/CUMM (130-400)
[2018-01-14] MEDS: HYDROCORTISONE 100 MG VIAL IV SCH ×2 (09:14→21:11)
[2018-01-14] MEDS: OMEGA 3 ACID ETHYL ESTERS 1 GM CAPSULE PO SCH ×2 (09:15→22:39)
[2018-01-14] MEDS: AMIODARONE 200 MG TABLET PO SCH ×2 (09:15→21:10)
[2018-01-14] MEDS: FENOFIBRATE 145 MG TABLET PO SCH (09:15)
[2018-01-14] MEDS: CARVEDILOL 25 MG TABLET PO SCH ×2 (09:15→21:11)
[2018-01-14] MEDS: FAMOTIDINE 20 MG/2 ML VIAL IV SCH ×2 (09:15→09:25)
[2018-01-14] MEDS: amLODIPine 10 MG TABLET PO SCH (09:16)
[2018-01-14] MEDS: ATORVASTATIN 80 MG TABLET PO SCH (21:11)
[2018-01-15] MEDS: INSULIN LISPRO 100 UNIT/ML SUBCUT SCH ×4 (00:59→18:35)
[2018-01-15] MEDS: ZINC OXIDE PASTE 113 GM TUBE TOP SCH ×3 (04:25→22:45)
[2018-01-15] MEDS: MORPHINE 4 MG/1 ML VIAL IV PRN (05:15)
[2018-01-15] MEDS: LORazepam 2 MG/1 ML VIAL IV PRN (05:20)
[2018-01-15] MEDS ORDERED: ceFAZolin 2,000 MG in PREMIX 1 EACH IV ONE (06:00)
[2018-01-15] MEDS ORDERED: LIDOCAINE 1%/EPI INJ 20 ML VIAL ONE (06:14)
[2018-01-15] MEDS ORDERED: BUPIVACAINE 0.25% /EPI 10 ML VIAL ONE (06:14)
[2018-01-15] MEDS ORDERED: HEPARIN 5,000 UNIT/1 ML VIAL ONE (06:14)
[2018-01-15 06:31] LABS: Osmolality,Calculated 315.4 MOS/KG (273-304); Potassium 3.8 MMOL/L (3.5-5.1); Prealbumin 9.2 MG/DL (20-40)
[2018-01-15] MEDS ORDERED: MIDAZOLAM 10 MG/2 ML VIAL ONE (08:47)
[2018-01-15] MEDS ORDERED: HYDROCORTISONE 100 MG VIAL ONE (08:47)
[2018-01-15] MEDS ORDERED: PHENYLEPHRINE 1 MG/10 ML SYRINGE IV ONE (08:47)
[2018-01-15] MEDS ORDERED: SEVOFLURANE 1 UNIT/15 MINUTE INH ONE (08:47)
[2018-01-15] MEDS ORDERED: ROCURONIUM 100 MG/10 ML VIAL IV ONE (08:47)
[2018-01-15] MEDS: HYDROCORTISONE 100 MG VIAL IV SCH ×2 (09:29→22:33)
[2018-01-15] MEDS: amLODIPine 10 MG TABLET PO SCH (09:30)
[2018-01-15] MEDS: OMEGA 3 ACID ETHYL ESTERS 1 GM CAPSULE PO SCH ×2 (09:30→22:33)
[2018-01-15] MEDS: FAMOTIDINE 20 MG/2 ML VIAL IV SCH (09:30)
[2018-01-15] MEDS: CARVEDILOL 25 MG TABLET PO SCH ×2 (09:31→22:33)
[2018-01-15] MEDS: FENOFIBRATE 145 MG TABLET PO SCH (09:31)
[2018-01-15] MEDS: AMIODARONE 200 MG TABLET PO SCH ×2 (09:31→22:33)
[2018-01-15] MEDS: DESITIN 4OZ/NYSTATIN 15 GRAM MIXTURE PASTE TOP SCH ×2 (12:37→22:45)
[2018-01-15] MEDS: ATORVASTATIN 80 MG TABLET PO SCH (22:33)
[2018-01-16] MEDS: INSULIN LISPRO 100 UNIT/ML SUBCUT SCH ×3 (02:38→12:28)
[2018-01-16 05:02] LABS: ABG Base Excess -1.8 MMOL/L (-2.5-2.5); ABG Oxygen Saturation 97.6 % (95-100); ABG PCO2 32.8 MM HG (35-48); ABG PH 7.445 (7.35-7.45); ABG PO2 110.9 MM HG (80-95)
[2018-01-16 05:56] LABS: Albumin 2.1 G/DL (3.4-5.0); Bilirubin,Total 0.7 MG/DL (0.2-1.0); Osmolality,Calculated 322.3 MOS/KG (273-304); Potassium 3.7 MMOL/L (3.5-5.1); Total Protein 6.8 G/DL (6.4-8.3)
[2018-01-16 06:27] LABS: Basophils % 0.1 % (0.0-0.8); White Blood Count 27.2 T/CUMM (4-12)
[2018-01-16 07:18] LABS: Immature Granulocytes % 2.2 %; Immature Granulocytes Absolute 0.61 #; Lymphocytes # 1.2 10*3/uL (1.4-4.0); Lymphocytes % 4.4 % (21.2-54.2); Mean Corpuscular HGB Conc 32.2 GM/DL (32-36); Mean Corpuscular Hemoglobin 30 PG (27-34); Mean Corpuscular Volume 94.1 FL (87-102); Monocytes # 2.1 10*3/uL (0.11-0.8); Monocytes % 7.5 % (1.7-12.7); Neutrophils # 23.3 10*3/uL (1.4-7.4); Neutrophils % 85.8 % (38.7-73.9); Platelet Count 363 T/CUMM (130-400); Red Blood Count 1.88 MC/CUMM (3.8-5.5); Red Cell Distribution Width 15.9 % (9.3-17.3)
[2018-01-16 07:26] LABS: Hemoglobin 5.7 GM/DL (14.0-18.0)
[2018-01-16 07:28] LABS: Hematocrit 17.7 VOL% (42.0-52.0)
[2018-01-16 07:40] LABS: Band Neutrophils 2 % (0-10); Hypochromasia 1+; Lymphocytes 1 % (20-55); Ovalocytes Slight; Platelet Estimate Adequate; Segmented Neutrophils 90 % (50-85); Total Cells Counted 100
[2018-01-16] MEDS ORDERED: SODIUM CHLORIDE 0.9% 1,000 ML IV PRN (08:38)
[2018-01-16] MEDS: CARVEDILOL 25 MG TABLET PO SCH (09:13)
[2018-01-16] MEDS: FENOFIBRATE 145 MG TABLET PO SCH (09:13)
[2018-01-16] MEDS: OMEGA 3 ACID ETHYL ESTERS 1 GM CAPSULE PO SCH (09:13)
[2018-01-16] MEDS: amLODIPine 10 MG TABLET PO SCH (09:13)
[2018-01-16] MEDS: ZINC OXIDE PASTE 113 GM TUBE TOP SCH (09:14)
[2018-01-16] MEDS: FAMOTIDINE 20 MG/2 ML VIAL IV SCH (09:14)
[2018-01-16] MEDS: DESITIN 4OZ/NYSTATIN 15 GRAM MIXTURE PASTE TOP SCH (09:14)
[2018-01-16] MEDS: HYDROCORTISONE 100 MG VIAL IV SCH (09:17)
[2018-01-16] MEDS: AMIODARONE 200 MG TABLET PO SCH (13:56)
[2018-01-16 16:32] VITALS: BP 160/79
== END 2018-01-16 17:10 | DRG 4 ==
LOC: EDUNIT# → EDBD → N.ED 11:59 → N.EDINP 14:37 → SUATTDRO 14:37 → N.3E 15:13 → N.CC 16:05
PROVIDERS: ADMIT Internal Medicine; ATTEND Internal Medicine